=== PATIENT | female | born 1945 | race Caucasian/White ===

== ENCOUNTER → 2019-08-03 16:23 | Outpatient (BNVA) | payer MEDICARE, OTHER, SELFPAY | PROVIDERS: Visit Provider Nurse Practitioner | DX: R50.9 Fever, unspecified (principal) | CPT/HCPCS: 87804 ==

== ENCOUNTER 2020-05-17 10:09 | Outpatient (CLI) | payer MEDICARE, BC, SELFPAY ==
--- NOTE | 2020-05-17 10:15 | MM_ITS ---
WS: [id number] SCREENING DIGITAL MAMMOGRAM WITH CAD HISTORY: SCREENING COMPARISON: 02/18/2018 and 07/24/2011 and 09/09/2014 Bilateral CC and MLO views submitted. Computer aided detection analyzed. Breast composition: There are scattered areas of fibroglandular density. Slightly spiculated asymmetr ic density measuring 7 mm with calcification in the central LEFT breast. Benign calcifications in eac h breast. MM/[place] [id number] IMPRESSION: BI-RADS: 0-Incomplete: Need additional imaging evaluation FOLLOW UP: Need Additional Imaging LEFT breast: Spot compression views (CC and MLO). True ML. Ultrasound to follow if abnormality persists.
== END 2020-05-17 10:10 | disposition home or self-care (01) ==
LOC: RADSHAW 10:13
PROVIDERS: PCP Family Medicine; Visit Provider Family Medicine
DX: Z12.31 Encounter for screening mammogram for malignant neoplasm of breast (principal)
CPT/HCPCS: 77067

== ENCOUNTER 2020-06-02 11:01 | Outpatient (CLI) | payer MEDICARE, BC, SELFPAY ==
--- NOTE | 2020-06-02 11:13 | XR_ITS ---
WS: [id number] 3 views of the right first finger, 06/02/2020 Clinical Data: THUMB PAIN, RIGHT Comparison: None. Findings: No new fractures or dislocations are seen. The soft tissues are normal. The epiphyses and joint space s are not remarkable. There is a small fragment at the base of the right first distal phalanx which may be from an old inju ry. XR/XR finger RT min 2V [id number] Impression: Negative for new fractures or dislocations.
== END 2020-06-02 11:02 | disposition home or self-care (01) ==
PROVIDERS: PCP Family Medicine; Visit Provider Nurse Practitioner Family
DX: M79.644 Pain in right finger(s) (principal)
CPT/HCPCS: 73140

== ENCOUNTER 2020-06-29 08:06 | Outpatient (CLI) | payer MEDICARE, BC, SELFPAY ==
--- NOTE | 2020-06-29 08:14 | US_ITS ---
WS: [id number] ADDITIONAL VIEWS LEFT MAMMOGRAM LEFT BREAST ULTRASOUND HISTORY: LEFT BREAST MASS COMPARISON: 05/17/2020, 02/18/2018 LEFT MAMMOGRAM: Spot compression views and true ML. Soft tissue mass with coarse calcifications measures 8 mm in the central LEFT breast. There does appe ar to be a soft tissue component associated with these calcifications. Although the soft tissue compo nent is best seen on the CC film. LEFT BREAST ULTRASOUND 2-D and color Doppler imaging submitted. Hypoechoic nodule at 2:00, 5 cm from the nipple. Calcifications are not definitely identified. No inc reased vascularity. Benign in appearance. May or may not correspond to the mammographic abnormality. US/US breast LT limited* [id number] IMPRESSION: BI-RADS: 4-Suspicious Finding-Biopsy Should Be Considered FOLLOW UP: Biopsy Recommended Stereotactic biopsy recommended of LEFT breast mass measuring 8 mm. This is bes t seen on the CC projection and contains calcifications.
== END 2020-06-29 08:07 | disposition home or self-care (01) ==
LOC: RADSHAW 08:11
PROVIDERS: PCP Family Medicine; Visit Provider Family Medicine
DX: N63.21 Unspecified lump in the left breast, upper outer quadrant (principal)
CPT/HCPCS: 76642; 77065

== ENCOUNTER 2020-07-11 11:43 | Outpatient (CLI) | payer MEDICARE, BC, SELFPAY ==
--- NOTE | 2020-07-11 11:51 | MM_ITS ---
WS: [id number] STEREOTACTIC LEFT BREAST BIOPSY WITH VACUUM ASSISTANCE. History: Heterogeneous left breast calcifications. Biopsy recommended for suspicious calcifications a nd adjacent nodule. Procedure, risks, and complications were discussed the patient who agreed to proceed. Prior imaging w as reviewed. Cluster of calcifications within the left breast are localized. Stereotactic imaging was performed. P atient was prepped and draped in usual sterile fashion. After 1% lidocaine, calcifications were targe hayden stereotactically in the left breast. Small incision was made. Needle advanced into the cluster of calcifications left breast with imaging demonstrating appropriate position relative to the calcifica tions. Multiple vacuum-assisted core biopsies were obtained. Postprocedure imaging demonstrates calci fications within the biopsy specimen. The biopsy cavity was lavaged. Titanium clip was placed at the biopsy site. Postprocedure imaging dem onstrates clip in good position. No immediate complications. Pathology demonstrates: A. Breast, left, calcifications at 1300, biopsy: -Benign breast tissue with microcalcifications. -No malignancy identified. MM/MM biopsy LT vac assist [id number] IMPRESSION: 1. Uncomplicated vacuum-assisted stereotactic biopsy of calcifications in the left breast. 2. Pathology demonstrates benign breast tissue with microcalcifications. No ma lignancy. BI-RADS 2 benign Recommend return to annual screening mammography.
--- NOTE | 2020-07-11 11:51 | MM_ITS ---
WS: [id number] STEREOTACTIC LEFT BREAST BIOPSY WITH VACUUM ASSISTANCE. History: Heterogeneous left breast calcifications. Biopsy recommended for suspicious calcifications a nd adjacent nodule. Procedure, risks, and complications were discussed the patient who agreed to proceed. Prior imaging w as reviewed. Cluster of calcifications within the left breast are localized. Stereotactic imaging was performed. P atient was prepped and draped in usual sterile fashion. After 1% lidocaine, calcifications were targe hayden stereotactically in the left breast. Small incision was made. Needle advanced into the cluster of calcifications left breast with imaging demonstrating appropriate position relative to the calcifica tions. Multiple vacuum-assisted core biopsies were obtained. Postprocedure imaging demonstrates calci fications within the biopsy specimen. The biopsy cavity was lavaged. Titanium clip was placed at the biopsy site. Postprocedure imaging dem onstrates clip in good position. No immediate complications. Pathology demonstrates: A. Breast, left, calcifications at 1300, biopsy: -Benign breast tissue with microcalcifications. -No malignancy identified. MM/[place] [id number] IMPRESSION: 1. Uncomplicated vacuum-assisted stereotactic biopsy of calcifications in the left breast. 2. Pathology demonstrates benign breast tissue with microcalcifications. No ma lignancy. BI-RADS 2 benign Recommend return to annual screening mammography.
--- NOTE | 2020-07-11 11:51 | MM_ITS ---
WS: [id number] STEREOTACTIC LEFT BREAST BIOPSY WITH VACUUM ASSISTANCE. History: Heterogeneous left breast calcifications. Biopsy recommended for suspicious calcifications a nd adjacent nodule. Procedure, risks, and complications were discussed the patient who agreed to proceed. Prior imaging w as reviewed. Cluster of calcifications within the left breast are localized. Stereotactic imaging was performed. P atient was prepped and draped in usual sterile fashion. After 1% lidocaine, calcifications were targe hayden stereotactically in the left breast. Small incision was made. Needle advanced into the cluster of calcifications left breast with imaging demonstrating appropriate position relative to the calcifica tions. Multiple vacuum-assisted core biopsies were obtained. Postprocedure imaging demonstrates calci fications within the biopsy specimen. The biopsy cavity was lavaged. Titanium clip was placed at the biopsy site. Postprocedure imaging dem onstrates clip in good position. No immediate complications. Pathology demonstrates: A. Breast, left, calcifications at 1300, biopsy: -Benign breast tissue with microcalcifications. -No malignancy identified. MM/MM surgical specimen LT IMPRESSION: 1. Uncomplicated vacuum-assisted stereotactic biopsy of calcifications in the left breast. 2. Pathology demonstrates benign breast tissue with microcalcifications. No ma lignancy. BI-RADS 2 benign Recommend return to annual screening mammography.
[2020-07-11 12:34] LABS: INR 1.02 (0.8-1.2)
== END 2020-07-11 11:44 | disposition home or self-care (01) ==
LOC: RADSHAW 11:49
PROVIDERS: PCP Family Medicine; Visit Provider Family Medicine
DX: R92.1 Mammographic calcification found on diagnostic imaging of breast (principal)
CPT/HCPCS: 19081; 77065; 85610; 88305

== ENCOUNTER 2021-01-25 10:31 | Emergency (ER) | payer MEDICARE, BC, SELFPAY ==
[2021-01-25 11:09] VITALS: BP 200/98; PULSE 66; RESP 15; O2SAT 96; BMI 49.1
--- NOTE | 2021-01-25 11:20 | XR_ITS ---
WS: [id number] Right foot, 3 views, 01/25/2021 Clinical Data: trauma Comparison: None. Findings: No fractures or dislocations are seen. No bone destruction or erosion is noted. There is a bunion at the head of the right first metatarsal. There is irregularity of the base of the right fifth metatars al. There is a plantar spur. XR/XR foot RT min 3V* [id number] Impression: 1. Negative for fracture. 2. Bunion at the head of the right first metatarsal.
--- NOTE | 2021-01-25 11:22 | W.ED.EXTPRO ---
HPI - Extremity Problem General: Chief complaint: Extremity Injury, Lower Stated complaint: R foot pain Time Seen by Provider: 01/25/21 11:10 History of Present Illness: HPI Narrative: Patient complains about right foot pain since zero 400 this morning when she struck her right foot against the leg of a chair. Says she rolled her ankle slightly but her ankle is not hurting. Complaint: extremity pain Onset (ago): hour(s) Pain Consistency: constant Location: right and lower extremity Severity scale (1-10): 4 Quality: aching Relieving factors: immobilization Exacerbating factors: weight bearing Associated symptoms: Reports no associated symptoms; Deny chest pain, fever(s) or rash Review of Systems Const: Denies: fever(s), chills or body aches Eyes: Denies: change in vision or blurry vision ENMT: Denies: throat pain or nasal congestion Card: Reports: other (History of hypertension); Denies: chest pain or dyspnea on exertion Resp: Denies: dyspnea, productive cough or non-productive cough GI: Denies: abdominal pain, nausea or vomiting Musc: Reports: extremity pain (Right foot) Skin/Breast: Denies: rash Neuro: Denies: headache(s) Psych: Denies: anxiety or depression Frank/Lymph: Denies: easy bruising PFSH ED PFSH: Social History (System 01/09/21 @ 15:00 by Tabatha Rivera) Smoking and tobacco status: never smoked Physical Exam Const: COMMON NORMALS: no acute distress GENERAL APPEARANCE: cooperative Extremity: RIGHT LOWER EXTREMITY: Yes foot & digits (Tenderness to midfoot below toes #3 ,4 and five. No swelling) Psych: COMMON NORMALS: mental status grossly normal Course Vital Signs: Vital signs: Vital Signs Pulse Rate 66 01/25/21 11:09 Respiratory Rate 15 01/25/21 11:09 Blood Pressure 200/98 01/25/21 11:09 Pulse Oximetry 96 01/25/21 11:09 Discharge Plan Discharge Prescriptions: No Action amoxicillin-pot clavulanate [Augmentin] 875-125 mg tablet 1 tab PO BID 10 Days Qty: 20 RF: 0 omeprazole 20 mg capsule,delayed release(DR/EC) 20 mg PO BID RF: 0 ferrous gluconate 324 mg (38 mg iron) tablet 324 mg PO BID RF: 0 metoprolol succinate 50 mg tablet extended release 24 hr 50 mg PO TID RF: 0 lisinopril-hydrochlorothiazide 20-12.5 mg tablet 1 tab PO DAILY RF: 0 desloratadine 5 mg tablet 5 mg PO DAILY RF: 0 Coding Level of Care Code ED Mentally Impaired Teacher for Luiz Hernandez
[2021-01-25 11:31] VITALS: BP 170/99; O2SAT 95
[2021-01-25 12:23] VITALS: BP 172/90; RESP 15
== END 2021-01-25 12:23 | disposition home or self-care (01) ==
PROVIDERS: Emergency Provider Nurse Practitioner Family; PCP Family Medicine
DX: M79.671 Pain in right foot (principal)
CPT/HCPCS: 73630; 99282

== ENCOUNTER 2021-09-03 19:29 | Inpatient (IN) | payer MEDICARE, BC, SELFPAY ==
[2021-09-03 19:39] VITALS: BP 187/89; PULSE 77; RESP 18; TEMP 36.6; O2SAT 96; BMI 48.4
--- NOTE | 2021-09-03 20:11 | ED_ITS ---
HPI - GI Bleed General: Chief complaint: ER Hold Stated complaint: pt states Lowe GI bleed Time Seen by Provider: 09/03/21 19:42 Source: patient Mode of arrival: ambulatory Limitations: no limitations History of Present Illness: 76 yo female who has had a history of lower GI bleeds in the past. States she has not had one in roughly 3 years but states she has had diffuse heavy bright red blood in her stools throughout the day. States she been feeling lightheaded as well. States that she has had to have transfusions in the past for GI bleeding she denies any worsening improving factors she is not hypotensive here. Associated symptoms: Denies chills, easy bruising, fever(s), headache(s) or rash Review of Systems Const: Denies: fever(s), chills, body aches or change in appetite Eyes: Denies: blurry vision or eye discomfort ENMT: Denies: throat pain or dental pain Card: Denies: chest pain Resp: Denies: dyspnea GI: Reports: hematochezia : Denies: dysuria Musc: Denies: neck pain or back pain Skin/Breast: Denies: rash Neuro: Denies: headache(s) Psych: Denies: depression Frank/Lymph: Denies: easy bruising All/Imm: Denies: urticaria PFSH ED PFSH: Medical History (Updated 09/03/21 @ 23:20 by Ashley Sandra MD) Lower GI bleed Social History Smoking and tobacco status: never smoked Physical Exam Const: COMMON NORMALS: no acute distress, patient oriented x3 and healthy appearing HENMT: COMMON NORMALS: normocephalic and atraumatic HEAD & SCALP: normocephalic and atraumatic Eye: COMMON NORMALS: Equal, round and reactive pupils present and EOMs intact bilaterally PUPIL: Yes Equal, round and reactive pupils present Neck/C-Spine: COMMON NORMALS: full ROM and supple Chest: COMMONS NORMALS: normal inspection of the chest and normal palpation of entire chest wall Resp: COMMON NORMALS: normal respiratory effort, No retractions, No use of accessory muscles and clear to auscultation bilaterally AUSCULTATION: clear to auscultation bilaterally Cardio: COMMON NORMALS: regular rate, regular rhythm and No murmurs present (Cardio) RATE: regular rate RHYTHM: regular rhythm GI: COMMON NORMALS: Normal to inspection, nondistended, normoactive bowel sounds present, Soft to palpation, non-tender and no masses PALPATION: Yes Soft to palpation Extremity: COMMON NORMALS: normal to inspection and full ROM Neuro: COMMON NORMALS: patient oriented x3, moves all extremities and no focal motor deficits Psych: COMMON NORMALS: mental status grossly normal, Normal thought process present and cooperative THOUGHT PROCESS: Normal thought process present Skin: COMMON NORMALS: no rashes or lesions noted and no wounds GENERAL SKIN EXAM: no rashes or lesions noted Course Vital Signs: Vital signs: Vital Signs Temperature 97.9 F 09/03/21 19:39 Pulse Rate 94 09/03/21 23:28 Respiratory Rate 16 09/03/21 23:28 Blood Pressure 122/77 09/03/21 23:28 Pulse Oximetry 96 09/03/21 23:28 MDM - GI Bleed Medical Decision Making Patient presents here with a lower GI bleed likely from diverticulosis. Her blood pressure down here in the ER has been stable she has had a bloody bowel movement here did repeat her hemoglobin did go down slightly but is a 12 does not require transfusion. Spoke to Dr. Rubio who is consulted talk to the hospitalist who is admitting. Lab Data : 09/03/21 23:08 09/03/21 20:04 Radiology Impressions Abdomen/Pelvis CT 09/03/21 20:43 IMPRESSION: 1. Active GI hemorrhage in the distal ascending and hepatic flexure portions of the colon. This could be due to diverticulosis however a neoplastic lesion is not excluded. Follow-up with colonoscopy is recommended. 2. Severe diverticulosis of the colon. COMMENTS: Consistent with the [employer]'s Incidental Findings Committee white paper (J Am Nickie Radiol 2018): Any incidental renal lesion less than 1 cm or classified as too small to characterize, or any incidental cystic renal lesion characterized as simple-appearing, is likely benign. No follow-up imaging is recommended for these lesions per consensus recommendations based on imaging criteria. ADDENDUM: 09/03/21 [id number] THIS REPORT CONTAINS FINDINGS THAT MAY BE CRITICAL TO PATIENT CARE. Dr Sandra reports he has seen report, and has no questions at 10:58 PM CDT on 09/03/2021. Laboratory Results WBC 7.9 10^3/uL (4.0-10.0) 09/03/21 20:04 RBC 4.65 10^6/uL (4.1-5.3) 09/03/21 20:04 Hgb 12.5 g/dL (11.5-15.3) 09/03/21 23:08 Hct 38.0 % (37.0-47.0) 09/03/21 23:08 MCV 91.2 fl (81-99) 09/03/21 20:04 MCH 29.7 pg (28.0-34.0) 09/03/21 20:04 MCHC 32.5 g/dL (30.0-36.0) 09/03/21 20:04 RDW 13.2 % (12.1-15.1) 09/03/21 20:04 Plt Count 195 10^3/cmm (130-400) 09/03/21 20:04 MPV 12.1 fL (7.4-10.4) H 09/03/21 20:04 Neut % (Auto) 56.1 % 09/03/21 20:04 Lymph % (Auto) 32.4 % 09/03/21 20:04 [place] % (Auto) 8.8 % 09/03/21 20:04 Eos % (Auto) 1.8 % 09/03/21 20:04 Baso % (Auto) 0.5 % 09/03/21 20:04 Neut # (Auto) 4.45 10^3/uL (1.8-7.7) 09/03/21 20:04 Lymph # (Auto) 2.6 10^3/uL (0.8-4.8) 09/03/21 20:04 [place] # (Auto) 0.7 10^3/uL (0.2-0.9) 09/03/21 20:04 Eos # (Auto) 0.1 10^3/uL (0.0-0.8) 09/03/21 20:04 Baso # (Auto) 0.0 10^3/uL (0.0-0.1) 09/03/21 20:04 Nucleated RBC % (auto) 0 % 09/03/21 20:04 Nucleated RBCs # 0.0 /100WBC 09/03/21 20:04 PT 12.70 SECONDS (12.1-14.9) 09/03/21 20:04 INR 0.93 (0.8-1.2) 09/03/21 20:04 Sodium 136 mmol/L (136-145) 09/03/21 20:04 Potassium 4.1 mmol/L (3.5-5.1) 09/03/21 20:04 Chloride 101 mmol/L (98-107) 09/03/21 20:04 Carbon Dioxide 25 mmol/L (22-29) 09/03/21 20:04 Anion Gap 14.1 (5-19) 09/03/21 20:04 BUN 16 mg/dL (8-23) 09/03/21 20:04 Creatinine 0.7 mg/dL (0.5-0.9) 09/03/21 20:04 GFR Calculation Not Reportable 09/03/21 20:04 Glucose 246 mg/dL (65-115) H 09/03/21 20:04 Calculated Osmolality 291 mOsm/kg (285-295) 09/03/21 20:04 Calcium 9.3 mg/dL (8.5-10.5) 09/03/21 20:04 Total Bilirubin 0.2 mg/dL (0.15-1.2) 09/03/21 20:04 AST 19 U/L (0-32) 09/03/21 20:04 ALT 19 U/L (0-33) 09/03/21 20:04 Alkaline Phosphatase 69 IU/L (35-105) 09/03/21 20:04 Total Protein 6.8 g/dL (6.6-8.7) 09/03/21 20:04 Albumin 3.5 g/dL (3.5-5.2) 09/03/21 20:04 Globulin 3.3 g/dL (1.3-4.6) 09/03/21 20:04 Blood Type AB Positive 09/03/21: Rho(D) Type Positive 09/03/21: Antibody Screen Negative 09/03/21 20:29 Critical Care Time Critical Care Time: Critical Care Time: Yes Total Critical Care Time: 39 Attestation: The high probability of a clinically significant, sudden or life threatening deterioration of the patient's GI system(s) required my full and direct attention, intervention and personal management. The critical care time is as shown. This time is in addition to time spent performing any reported procedures but includes the following: [x] Data and vital sign review and interpretation [x] Patient assessment, examination and intervention [x] Documentation [x] Medication orders and management Discharge Plan Discharge Patient Disposition: Admitted As Inpatient Clinical Impression: Lower GI bleed Condition: Stable Coding Level of Care Code ED Restaurant General Manager for Richardg Fwd Exam Comprehensive
[2021-09-03 20:15] LABS: Basophils % 0.5 %; Eosinophils # 0.1 10^3/uL (0.0-0.8); Eosinophils % 1.8 %; Hematocrit 42.4 % (37.0-47.0); Hemoglobin 13.8 g/dL (11.5-15.3); Lymphocytes # 2.6 10^3/uL (0.8-4.8); Lymphocytes % 32.4 %; Mean Corpuscular HGB Conc 32.5 g/dL (30.0-36.0); Mean Corpuscular Hemoglobin 29.7 pg (28.0-34.0); Mean Corpuscular Volume 91.2 fl (81-99); Mean Platelet Volume 12.1 fL (7.4-10.4); Monocytes # 0.7 10^3/uL (0.2-0.9); Monocytes % 8.8 %; Neutrophils # 4.45 10^3/uL (1.8-7.7); Neutrophils % 56.1 %; Nucleated Red Blood Cells % 0 %; Platelet Count 195 10^3/cmm (130-400); Red Blood Count 4.65 10^6/uL (4.1-5.3); Red Cell Distribution Width 13.2 % (12.1-15.1); White Blood Count 7.9 10^3/uL (4.0-10.0)
[2021-09-03 20:24] LABS: INR 0.93 (0.8-1.2)
[2021-09-03 20:36] LABS: Alanine Aminotransferase 19 U/L (0-33); Albumin Level 3.5 g/dL (3.5-5.2); Alkaline Phosphatase 69 IU/L (35-105); Blood Urea Nitrogen 16 mg/dL (8-23); Calcium 9.3 mg/dL (8.5-10.5); Carbon Dioxide 25 mmol/L (22-29); Chloride 101 mmol/L (98-107); Globulin 3.3 g/dL (1.3-4.6); Glucose 246 mg/dL (65-115); Osmolality Calculated 291 mOsm/kg (285-295); Sodium 136 mmol/L (136-145); Total Bilirubin 0.2 mg/dL (0.15-1.2); Total Protein 6.8 g/dL (6.6-8.7)
[2021-09-03 20:37] LABS: Anion Gap 14.1 (5-19); Aspartate Amino Transferase 19 U/L (0-32); Potassium 4.1 mmol/L (3.5-5.1)
--- NOTE | 2021-09-03 20:43 | CTR_ITS ---
PROCEDURE INFORMATION: Exam: CT Abdomen And Pelvis With Contrast Exam date and time: 09/03/2021 9:29 PM Age: 76 years old Clinical indication: Other: Rectal bleeding; Prior surgery; Surgery type: Gb. Hysterectomy. ; Patient HX: Patient states been having bloody stools and active bleeding starting this afternoon. TECHNIQUE: Imaging protocol: Computed tomography of the abdomen and pelvis with contrast. Radiation optimization: All CT scans at this facility use at least one of these dose optimization techniques: automated exposure control; mA and/or kV adjustment per patient size (includes targeted exams where dose is matched to clinical indication); or iterative reconstruction. Contrast material: OMNI 300; Contrast volume: 95 ml; Contrast route: INTRAVENOUS (IV); COMPARISON: [place] [id number] 06/29/2020 8:31 AM RADIATION DOSE METRICS: Total DLP (mGy-cm): 1751.33 FINDINGS: Liver: Diffuse fatty infiltration of the liver. Mild hepatomegaly. Gallbladder and bile ducts: Cholecystectomy. The bile ducts are normal. Pancreas: Normal. No ductal dilation. Spleen: Normal. No splenomegaly. Adrenal glands: Normal. No mass. Kidneys and ureters: Atrophic mildly dysplastic right kidney. Hypodensity in the left kidney is too small to characterize but is most likely a cyst. No follow-up imaging is recommended. No calculus hydronephrosis. Stomach and bowel: There is active extravasation of intravascular contrast in the distal ascending and hepatic flexure portions of the colon. There are diverticula in this region and possible wall thickening. Diverticulosis of the entire colon, severe distally. No evidence for diverticulitis. The stomach and small bowel are unremarkable. No obstruction. Appendix: No evidence of appendicitis. Intraperitoneal space: Unremarkable. No free air. No significant fluid collection. Vasculature: Unremarkable. No abdominal aortic aneurysm. Lymph nodes: Unremarkable. No enlarged lymph nodes. Urinary bladder: Unremarkable as visualized. Reproductive: The uterus is absent. Normal ovaries. Bones/joints: Unremarkable. No acute fracture. Soft tissues: Mild flank body wall edema. CT/CT abdomen pelvis w con* [id number] IMPRESSION: 1. Active GI hemorrhage in the distal ascending and hepatic flexure portions of the colon. This could be due to diverticulosis however a neoplastic lesion is not excluded. Follow-up with colonoscopy is recommended. 2. Severe diverticulosis of the colon. COMMENTS: Consistent with the [employer]'s Incidental Findings Committee white paper (J Am Nickie Radiol 2018): Any incidental renal lesion less than 1 cm or classified as too small to characterize, or any incidental cystic renal lesion characterized as simple-appearing, is likely benign. No follow-up imaging is recommended for these lesions per consensus recommendations based on imaging criteria.
[2021-09-03] MEDS: iohexol 300 mg/mL 100 mL Btl IV (21:29)
[2021-09-03 22:11] VITALS: BP 189/89; PULSE 98; RESP 18; O2SAT 95
[2021-09-03 23:13] LABS: Hemoglobin 12.5 g/dL (11.5-15.3)
[2021-09-03 23:28] VITALS: BP 122/77; PULSE 94; RESP 16; O2SAT 96
--- NOTE | 2021-09-03 23:49 | P.HP_ITS ---
Providers/Chief Complaint Primary Care Provider: Kuldip Winslow MD Chief Complaint: pt states Lowe GI bleed History of Present Illness Mercedes Pizarro is a 76 year old female with a past medical history of cervical cancer, diet-controlled type 2 diabetes mellitus, recurrent lower GI bleed, diverticular bleed, requiring multiple EGDs, total 5 units PRBC transfusion required no history of coil embolization required, no history of ICU admission, no history of hemorrhagic shock, hypertension, asthma, who presents to [facility] for complaints of bloody stools with clots. Patient tells me that she has a history of diverticular bleeds, she has had 2 hospitalizations at [facility], both requiring blood transfusions, both requiring colonoscopy. She also had a hospitalization for GI bleed at [facility], requiring blood transfusi on colonoscopy. This all is in the span of the last 3 years. She has been told that she has had diverticular bleeds, no history of upper GI bleed. She tells me that today at about 1 PM, she noted a sudden onset of bright red blood in her stool with clots. She thought the symptoms would dissipate however the progressively got worse, large volume is bright red blood with clots in her stool. Here in the emergency room, CT scan shows active GI hemorrhage in the distal ascending and hepatic flexures of the colon. Blood pressure 1 87/99, alert oriented x3, saturating in the high 90s on room air, INR 0.93, hemoglobin 12.5. During my examination, no active bloody or black stools, no hemodynamic compromise alert oriented x3, she did tell me that she had a couple of bites of food before she was made n.p.o. in addition I have been told that the ER has contacted Dr. dale who will see for colonoscopy Review of Systems Const: Denies: fever(s) Eyes: Denies: change in vision ENMT: Denies: nasal congestion Resp: Denies: dyspnea GI: Reports: abdominal pain; Denies: nausea or vomiting : Denies: flank pain Skin/Breast: Denies: rash Neuro: Denies: headache(s) Medications/Allergies Home Medications Medication Instructions Recorded Confirmed Last Taken Type desloratadine 5 mg tablet 5 mg PO DAILY 08/03/19 10/15/19 Unknown History ferrous gluconate 324 mg (38 mg 324 mg PO BID tab 08/03/19 10/15/19 Unknown History iron) tablet lisinopril 20 1 tab PO DAILY 08/03/19 10/15/19 Unknown History mg-hydrochlorothiazide 12.5 mg tablet metoprolol succinate 50 mg 50 mg PO TID tab 08/03/19 10/15/19 Unknown History tablet,extended release 24 hr omeprazole 20 mg capsule,delayed 20 mg PO BID 08/03/19 10/15/19 Unknown History release amoxicillin 875 mg-potassium 1 tab PO BID 10 Days #20 tab 10/15/19 10/15/19 Unknown Rx clavulanate 125 mg tablet (Augmentin) Allergies Allergy/AdvReac Type Severity Reaction Status Date / Time acetaminophen Allergy Unconscious Verified 01/09/21 15:00 [From Darvocet-N] codeine Allergy ADR-Drowsy Verified 01/09/21 15:00 erythromycin base Allergy Unconscious Verified 01/09/21 15:00 oxycodone [From Percocet] Allergy ADR-Vomitin Verified 01/09/21 15:00 g propoxyphene Allergy Unconscious Verified 01/09/21 15:00 [From Darvocet-N] PFSH Acute PFSH: Medical History (Updated 09/03/21 @ 23:58 by Renzo Vasquez MD) Asthma History of GI diverticular bleed Lower GI bleed Type 2 diabetes mellitus Surgical History History of colonoscopy Family History Mother Cancer Father Cancer Social History Smoking and tobacco status: never smoked Vitals/I&O/Wt Last Vital Signs Temp 97.9 F 09/03/21 19:39 Pulse 94 09/03/21 23:28 Resp 16 09/03/21 23:28 BP 122/77 09/03/21 23:28 Pulse Ox 96 09/03/21 23:28 Weight last 48 hrs Weight 127.913 kg Physical Exam Const: COMMON NORMALS: no acute distress and patient oriented x3 HENMT: COMMON NORMALS: normocephalic HEAD & SCALP: normocephalic Neck/C-Spine: COMMON NORMALS: no JVD Resp: COMMON NORMALS: normal respiratory effort, No retractions, No use of accessory muscles and clear to auscultation bilaterally AUSCULTATION: clear to auscultation bilaterally Cardio: COMMON NORMALS: no JVD, regular rate, regular rhythm, S1 normal heart sound present and S2 normal heart sound present RATE: regular rate RHYTHM: regular rhythm HEART SOUNDS: S1 normal heart sound present and S2 normal heart sound present GI: COMMON NORMALS: Normal to inspection, nondistended, normoactive bowel sounds present, Soft to palpation, non-tender, No hepatosplenomegaly present, no masses and no bruits PALPATION: Yes Soft to palpation and Yes No h epatosplenomegaly present Extremity: COMMON NORMALS: capillary refill normal, no clubbing, cyanosis or edema, no calf tenderness and no pedal edema Neuro: COMMON NORMALS: patient oriented x3 Psych: COMMON NORMALS: mental status grossly normal Data : 09/03/21 23:08 09/03/21 20:04 A&P Assessment and plan (1) Lower GI bleed: Status: Acute Plan Lower GI bleed 1. Active GI hemorrhage in the distal ascending and hepatic flexure portions of the colon.? This could be due to diverticulosis however a neoplastic lesion is not excluded.? Follow-up with colonoscopy is recommended. 2. Severe diverticulosis of the colon. No hemodynamic compromise Currently no active bloody or black stools, but did have a couple episodes of blood with clots in the emergency room Hemoglobin is 12.5 Plan -Monitor hemoglobin every 4 hours -Monitor for bloody stools -Monitor hemodynamics closely -Keep n.p.o. -IV fluids -Protonix, Carafate -General surgery on consult -Currently no need for coil embolization, however if hemoglobin drops or becomes hemodynamically compromised, can consider transfer for higher level of care -Full code -Anticoagulants for DVT prophylaxis contraindicated given active bleeding, SCDs Type 2 diabetes mellitus, diet controlled check A1c, monitor hemoglobin Hypertension hold blood pressure medication Attestations Medical Necessity Statement*: Patient requires hospitalization outpatient with observation, for lower GI bleed Coding Level of Care Code Acute Histology Technician for [facility] Diagnoses Lower GI bleed K92.2
[2021-09-04] VITALS (12 sets, daily range): BP systolic 120–159; BP diastolic 67–88; PULSE 66–94; RESP 16–96; TEMP 36.4–36.6; O2SAT 92–98
[2021-09-04 00:48] LABS: Estmated Average Glucose 197; Hemoglobin A1C 8.5 % (4.0-6.0)
[2021-09-04] MEDS: pantoprazole 40 mg SDV IVP ×2 (01:08→12:07)
[2021-09-04] MEDS: sucralfate 1 gm Tablet PO (01:08)
[2021-09-04] MEDS: dextrose 5%-sod chloride 0.9% 1,000 ML 100 ML IV ×3 (01:08→22:53)
[2021-09-04 02:40] LABS: Hematocrit 34.3 % (37.0-47.0); Hemoglobin 11.4 g/dL (11.5-15.3)
--- NOTE | 2021-09-04 03:50 | PC.NURSE ---
Pt. resting quietly . Pt. has no complaints or needs at this time. Pt. states that her episodes of blood in her stool have been coming less often.
[2021-09-04 06:14] LABS: Hematocrit 35.1 % (37.0-47.0); Hemoglobin 11.5 g/dL (11.5-15.3)
--- NOTE | 2021-09-04 07:45 | P.CONIM_ITS ---
Providers/Reason For Consult Consulting Physician/Specialty*: General Surgery Surendra Rubio MD Reason for Consult*: Hematochezia. Attending Physician: Dada Huntley MD Primary Care Provider: Kuldip Winslow MD History of Present Illness History of Present Illness Mercedes Pizarro is a 76 year old female who says that she started passing a little darker colored blood with some clots yesterday afternoon around 1:30 PM. This was unassociated with any abdominal pain. She said she had more than 10 bowel movements yesterday, all of which contain blood. She came into the hospital and a CAT scan showed a possible source of hemorrhage in the ascending colon/hepatic flexure. The patient says she is only had 1 bowel movement today but it did contain a little bit of dark blood and clots. She is thirsty and would like to drink some fluids. The patient has had a history of multiple episodes of GI bleeding. She had a colonoscopy in late [address] which showed extensive diverticular disease. She says in the next couple of years she ended up having 3 more colonoscopies in [facility] for GI bleeding. She has always been told that this is diverticular bleeding but is not sure where the exact source has been. She is in the habit of taking many NSAIDs. Review of Systems General: Reports: 10 or more systems reviewed and unremarkable except in HPI and below Const: Denies: fever(s) GI: Reports: hematochezia; Denies: abdominal pain, nausea or vomiting Medications/Allergies Home Medications Medication Instructions Recorded Confirmed Last Taken Type desloratadine 5 mg tablet 5 mg PO DAILY 08/03/19 09/04/21 Unknown History lisinopril 20 1 tab PO QAM 08/03/19 09/04/21 Unknown History mg-hydrochlorothiazide 12.5 mg tablet omeprazole 20 mg capsule,delayed 20 mg PO BID 08/03/19 09/04/21 Unknown History release Elderberry Gummies 2 tab PO DAILY 09/04/21 09/04/21 Unknown History albuterol sulfate 90 mcg/actuation 2 puff INHALATION QID PRN 09/04/21 09/04/21 Unknown History aerosol inhaler azelastine 137 mcg (0.1 %) nasal 2 spray INTRANASAL BID 09/04/21 09/04/21 Unknown History spray aerosol diphenoxylate-atropine 2.5 1 tab PO BID PRN 09/04/21 09/04/21 Unknown History mg-0.025 mg tablet ferrous sulfate 325 mg (65 mg 325 mg PO BID 09/04/21 09/04/21 Unknown History iron) tablet metoprolol tartrate 50 mg tablet 50 mg PO TID 09/04/21 09/04/21 Unknown History montelukast 10 mg tablet 10 mg PO DAILY 09/04/21 09/04/21 Unknown History multivitamin 1 tab PO DAILY 09/04/21 09/04/21 Unknown History neomycin 3.5 mg/g-polymyxin B See Rx Instructions .ROUTE .COMPLEX 09/04/21 09/04/21 Unknown History 10,000 unit/g-dexameth 0.1 % eye oint Allergies Allergy/AdvReac Type Severity Reaction Status Date / Time acetaminophen Allergy Unconscious Verified 01/09/21 15:00 [From Darvocet-N] codeine Allergy ADR-Drowsy Verified 01/09/21 15:00 erythromycin base Allergy Unconscious Verified 01/09/21 15:00 oxycodone [From Percocet] Allergy ADR-Vomitin Verified 01/09/21 15:00 g propoxyphene Allergy Unconscious Verified 01/09/21 15:00 [From Darvocet-N] Current Medications Generic Name Dose Route Start Last Admin Trade Name Freq PRN Reason Stop Dose Admin Dextrose/Sodium Chloride 1,000 mls @ 100 mls/hr 09/04/21 00:30 09/04/21 01:08 Dextrose 5%-Sod Chloride 0.9% IV 100 mls/hr .Q10H ANDRIA Administration Pantoprazole Sodium 40 mg 09/04/21 00:30 09/04/21 01:08 Pantoprazole 40 Mg Sdv IVP 40 mg Q12H ANDRIA Administration PFSH Acute PFSH: Medical History (Updated 09/04/21 @ 11:21 by Surendra Rubio MD) Asthma Cervical cancer Status post hysterectomy Diverticulosis History of GI diverticular bleed Lower GI bleed Type 2 diabetes mellitus Surgical History (Updated 09/04/21 @ 11:17 by Surendra Rubio MD) History of ankle surgery R x 2 / L x 1 --multiple fractures History of cataract surgery History of cholecystectomy History of colonoscopy Multiple History of dilatation and curettage / biopsies x 7 History of hysterectomy History of tonsillectomy Patellar disorder Right --debridement following a chip fracture Family History Mother Cancer Father Cancer Social History (Updated 09/04/21 @ 11:17 by Surendra Rubio MD) Smoking and tobacco status: never smoked Alcohol intake: never Vitals/I&O/Wt Last Vital Signs Temp 97.9 F 09/03/21 19:39 Pulse 84 09/04/21 06:29 Resp 16 09/04/21 06:29 BP 139/76 09/04/21 06:29 Pulse Ox 96 09/04/21 06:29 Weight last 48 hrs Weight 282 lb Physical Exam Narrative: The patient was encountered in her hospital room. She is in no distress. The pupils are equal. No carotid bruits are heard. The lungs are clear anteriorly. The heart is regular. The abdomen reveals bowel sounds and is soft but is moderately tender severely obese. There is no appreciable tenderness. No masses are palpated. The extremities reveal no significant edema. Neurologically the patient appears to be grossly intact. Data : 09/04/21 06:09 09/03/21 20:04 CT Abd/Pel: Radiologist's impression: CT abdomen/pelvis 09/03/2021IMPRESSION: 1. Active GI hemorrhage in the distal ascending and hepatic flexure portions of the colon.? This could be due to diverticulosis however a neoplastic lesion is not excluded.? Follow-up with colonoscopy is recommended. 2. Severe diverticulosis of the colon. A&P Assessment and plan (1) Lower GI bleed: The patient's CAT scan was reviewed. I agree with the assessment of possible ongoing hemorrhage at that time in the distal ascending colon as evidenced by the blush that is present. The patient has had multiple colonoscopies over the years. I made her aware that colonoscopy might be helpful in locating the source of bleeding but we cannot typically fix diverticular bleeding endoscopically. We discussed angiography, placement of coils by an interventional radiologist, etc. It appears that the patient's bleeding has certainly slowed and possibly even stopped. Her hemoglobin remained stable. She would like to avoid another colonoscopy at all possible. She would like to drink some liquids if that is allowed. I am going to allow her a clear liquid diet and we will continue to watch her clinical progress. Status: Acute (2) Diverticulosis: Seems rather extensive on imaging. Plan as above. Status: Acute Consult Attestations Medical Necessity Statement: See admitting service's notation. Coding Level of Care Code Acute Care Team Coordinator Scheduler for [facility] Diagnoses Lower GI bleed K92.2 Diverticulosis K57.90
--- NOTE | 2021-09-04 08:11 | PM.PN ---
Subjective Subjective: History and physical reviewed in detail. Patient interviewed. She denies any complaints of pain this morning. She reports her last bowel movement, of clots was around 1:30 AM. She is he believes her last colonoscopy was 3 years ago, and the findings were rather extensive diverticulosis. She denies any vomiting, nausea. Medications: Reviewed: Yes Vitals/I&O/Wt Last Vital Signs Temp 97.9 F 09/03/21 19:39 Pulse 85 09/04/21 07:52 Resp 16 09/04/21 07:52 BP 135/81 09/04/21 07:52 Pulse Ox 97 09/04/21 07:52 Weight last 48 hrs Weight 127.913 kg Physical Exam Narrative: General exam is a female, conversant, in no distress Neck is supple no lymphadenopathy thyromegaly Cardiovascular regular rate and rhythm without murmur, no S3 or S4 Lungs clear no wheezing or crackles Abdomen is soft nontender positive bowel sounds Extremities no cyanosis clubbing or edema Data : 09/04/21 06:09 09/03/21 20:04 A&P Assessment and plan (1) Lower GI bleed: Presentation consistent with lower GI bleed, with bright red blood per rectum. Evidence of active bleeding, seen on CT scan at distal ascending/hepatic flexure on admission. She has not had a bowel movement since about 130, and it is unlikely she is actively bleeding currently. Hemoglobin appears to have stabilized. According to patient last colonoscopy approximately 3 years ago, and has had multiple episodes of bleeds in the past. She is not on any anticoagulants or antiplatelets. Surgery has been consulted regarding possibility of endoscopy Status: Acute (2) Type 2 diabetes mellitus: Continue sliding scale insulin Status: Acute (3) Hypertension: Awaiting medicine reconciliation. Will likely need to restart metoprolol today. Status: Acute Plan Multiple other medical problems as outlined in past medical history Lovenox contraindicated, SCDs for DVT prophylaxis Attestations Medical Necessity Statement*: Needs continued hospital stay for evaluation of significant lower GI bleed with history of active bleeding seen on admission by CT scan. Coding Level of Care Code Acute Continuous Pickling Line Pickler for [facility] Hernandez Diagnoses Lower GI bleed K92.2 Type 2 diabetes mellitus E11.9 Hypertension I10
--- NOTE | 2021-09-04 10:07 | PC.CHAP ---
Pastoral Care Encounter/Spiritual Assessment Type of Contact [] Declined guide rail cleaner visit [] Patient/Family/Request visit [] Outpatient visit [] Follow-up visit [] Physician referral [] Code/Alert [x] Routine visit [] Staff referral [] Actively dying [] Patient sleeping [] Family support [] [] Out of room [] Palliative care [] [] Receiving care in room [] Pre-surgical visit [] Trauma [] Long length of stay [] ICU visit [] Other: Relational/Emotional Strength [x] Patient feels connected with others/family/visitors/staff [] Distress [] Loneliness/isolation [] Abandonment Spirituality of Patient [x] Person of Melba [] Attends Druze of their Melba [x] Believes in Prayer [] Reads Bible or Orthodox materials [] There are Spiritual issues to be addressed Director Adult Interventions [x] Prayer [x] Active listening [x] Non-anxious presence [x] Spiritual/emotional support [] Crisis/trauma care [] Spiritual counseling [] Bereavement support [] Provided bereavement packet [] Provided Bible/devotional materials [] Provided toy/stuffed animal, coloring book to patient or family member [] Provided Communion [] Anointing/[place] [] Salvation [x] Completed spiritual assessment [] Other: Impact on Illness or Injury [] Angry [] Fearful [] Anxious [] Often cries [] Exhaustion [] Unable to work [] Unable to attend pentecostal [] Unable to walk/stand [] Unable to read [] Unable to drive [] Unable to eat/drink [] Unable to sleep [] Unable to be with family [] Patient intubated [] Other: Summary Pt came through the ER yesterday, glad to be in a room. 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 She enjoys sewing and described it as her calming time. With in the last couple of months she has had several procedures done on her eyes and she is happy because she is able to sew again. She also enjoys gardening. She has four children and they are spread throughout the country. She was born in [facility]. Time spent with patient 15m
--- NOTE | 2021-09-04 10:23 | PC.NURSE ---
Patient arrived to floor via stretcher, up at amos, AAOx4, no current c/o pain but is chilled. Patient states having a recent episode of bloody stool. Asked patient to not flush toilet so staff can see the stool. No skin concerns, does have stitches to eye lids from recent surgery for excess eye lid removal. Physician, Dr Del Valle asked for someone in facility to remove stitches at earliest convenience as she had an appointment at his office this AM for their removal.
[2021-09-04 10:43] LABS: Glucose Point of Care 245 mg/dL (70-110)
[2021-09-04 14:20] LABS: Hematocrit 34.9 % (37.0-47.0); Hemoglobin 11.1 g/dL (11.5-15.3)
[2021-09-04] MEDS: metoprolol tartrate 50 mg Tablet PO ×2 (15:15→21:01)
[2021-09-04 17:55] LABS: Glucose Point of Care 219 mg/dL (70-110)
[2021-09-04 20:46] LABS: Glucose Point of Care 210 mg/dL (70-110)
[2021-09-05] VITALS (7 sets, daily range): BP systolic 137–165; BP diastolic 51–79; PULSE 66–651; RESP 18–20; TEMP 36.4–36.6; O2SAT 94–96
[2021-09-05] MEDS: pantoprazole 40 mg SDV IVP ×2 (00:34→12:25)
[2021-09-05 04:59] LABS: Basophils % 0.3 %; Eosinophils # 0.2 10^3/uL (0.0-0.8); Eosinophils % 2.2 %; Hematocrit 31.9 % (37.0-47.0); Hemoglobin 10.2 g/dL (11.5-15.3); Lymphocytes # 2.2 10^3/uL (0.8-4.8); Lymphocytes % 33.4 %; Mean Corpuscular Hemoglobin 29.5 pg (28.0-34.0); Mean Corpuscular Volume 92.2 fl (81-99); Mean Platelet Volume 12.3 fL (7.4-10.4); Monocytes # 0.6 10^3/uL (0.2-0.9); Monocytes % 9.5 %; Neutrophils # 3.63 10^3/uL (1.8-7.7); Neutrophils % 54.2 %; Nucleated Red Blood Cells % 0 %; Platelet Count 163 10^3/cmm (130-400); Red Blood Count 3.46 10^6/uL (4.1-5.3); Red Cell Distribution Width 13.4 % (12.1-15.1); White Blood Count 6.7 10^3/uL (4.0-10.0)
[2021-09-05 05:19] LABS: Alanine Aminotransferase 14 U/L (0-33); Albumin Level 2.9 g/dL (3.5-5.2); Alkaline Phosphatase 53 IU/L (35-105); Anion Gap 11.7 (5-19); Aspartate Amino Transferase 15 U/L (0-32); Blood Urea Nitrogen 11 mg/dL (8-23); Calcium 8.9 mg/dL (8.5-10.5); Carbon Dioxide 24 mmol/L (22-29); Chloride 107 mmol/L (98-107); Globulin 2.8 g/dL (1.3-4.6); Glucose 178 mg/dL (65-115); Magnesium 1.6 mg/dL (1.7-2.3); Osmolality Calculated 292 mOsm/kg (285-295); Potassium 3.7 mmol/L (3.5-5.1); Sodium 139 mmol/L (136-145); Total Bilirubin 0.2 mg/dL (0.15-1.2); Total Protein 5.7 g/dL (6.6-8.7)
[2021-09-05 06:08] LABS: Glucose Point of Care 190 mg/dL (70-110)
--- NOTE | 2021-09-05 06:29 | P.PN_ITS ---
Subjective Subjective: The patient feels well. She tells me her last 3 bowel movements did not have any blood in them. Vitals/I&O/Wt Last Vital Signs Temp 97.5 F L 09/05/21 03:36 Pulse 67 09/05/21 06:00 Resp 19 H 09/05/21 03:36 BP 137/70 09/05/21 03:36 Pulse Ox 96 09/05/21 03:36 09/04/21 09/04/21 09/05/21 14:59 22:59 06:59 Intake Total 855 / 2155 1000 / 2155 300 / 2155 Balance 855 / 2155 1000 / 2155 300 / 2155 Weight last 48 hrs Weight 282 lb Physical Exam Narrative: Abdomen remains soft. Data : 09/05/21 04:19 09/05/21 04:19 A&P Assessment and plan (1) Lower GI bleed: The patient's presentation CAT scan was reviewed. I agree with the assessment of possible ongoing hemorrhage at that time in the distal ascending colon as evidenced by the blush that is present. The patient has had multiple colonoscopies over the years. I made her aware that colonoscopy might be helpful in locating the source of bleeding but we cannot typically fix diverticular bleeding endoscopically. We discussed angiography, placement of coils by an interventional radiologist, etc. The patient says her last 3 bowel movements have not had any blood in them. It would appear that her bleeding has probably stopped. Continue present management. Status: Acute (2) Diverticulosis: Seems rather extensive on imaging. Plan as above. Status: Acute Attestations Medical Necessity Statement*: See admitting service's notation. Coding Level of Care Code Acute Brewery Pumper for [facility] Diagnoses Lower GI bleed K92.2 Diverticulosis K57.90
--- NOTE | 2021-09-05 08:37 | PM.PN ---
Subjective Subjective: Mercedes reports that she is doing okay. Last night she thought she may have had to have a bowel movement several times but did not pass any. Last bowel movement did have blood in it but this was yesterday. Wants to go ahead and advance diet this morning. Medications: Reviewed: Yes Vitals/I&O/Wt Last Vital Signs Temp 97.5 F L 09/05/21 03:36 Pulse 67 09/05/21 07:03 Resp 18 09/05/21 07:03 BP 141/68 09/05/21 07:03 Pulse Ox 95 09/05/21 07:03 09/04/21 09/05/21 09/05/21 22:59 06:59 14:59 Intake Total 1000 / 1855 300 / 2155 Balance 1000 / 1855 300 / 2155 Weight last 48 hrs Weight 127.913 kg Physical Exam Narrative: General exam is a female, conversant, in no distress Neck is supple no lymphadenopathy thyromegaly Cardiovascular regular rate and rhythm without murmur, no S3 or S4 Lungs clear no wheezing or crackles Abdomen is soft nontender positive bowel sounds Extremities no cyanosis clubbing or edema Data : 09/05/21 04:19 09/05/21 04:19 A&P Assessment and plan (1) Lower GI bleed: Presentation consistent with lower GI bleed, with bright red blood per rectum. Evidence of active bleeding, seen on CT scan at distal ascending/hepatic flexure on admission. Hemoglobin has drifted down slightly. She did ultimately have some bloody bowel movements yesterday, but no bowel movements throughout the night. We will advance diet and continue to observe closely. Surgery is on board. Plan for repeat hemoglobin tomorrow morning, unless bleeding recurs According to patient last colonoscopy approximately 3 years ago, and has had multiple episodes of bleeds in the past. She is not on any anticoagulants or antiplatelets. Surgery has been consulted regarding possibility of endoscopy Status: Acute (2) Type 2 diabetes mellitus: Continue sliding scale insulin Status: Acute (3) Hypertension: Metoprolol was reinitiated Status: Acute Plan Hypomagnesemia, supplement Multiple other medical problems as outlined in past medical history Lovenox contraindicated, SCDs for DVT prophylaxis Attestations Medical Necessity Statement*: Needs continued hospital stay for close monitoring secondary to GI bleed with anemia and decreasing hemoglobin by over 2 g. Was still having blood in his stools as of yesterday afternoon/evening Coding Level of Care Code Acute Senior Java Programmer Analyst for [facility] Diagnoses Lower GI bleed K92.2 Type 2 diabetes mellitus E11.9 Hypertension I10
[2021-09-05] MEDS: magnesium sulfate premix 2 GM/50 ML PIGGYBACK IV (09:00)
[2021-09-05] MEDS: metoprolol tartrate 50 mg Tablet PO ×3 (09:08→20:34)
--- NOTE | 2021-09-05 10:22 | PC.CHAP ---
Pastoral Care Encounter/Spiritual Assessment Type of Contact [] Declined internal communications writer visit [] Patient/Family/Request visit [] Outpatient visit [] Follow-up visit [] Physician referral [] Code/Alert [x] Routine visit [] Staff referral [] Actively dying [] Patient sleeping [] Family support [] [] Out of room [] Palliative care [] [] Receiving care in room [] Pre-surgical visit [] Trauma [] Long length of stay [] ICU visit [] Other: Relational/Emotional Strength [x] Patient feels connected with others/family/visitors/staff [] Distress [] Loneliness/isolation [] Abandonment Spirituality of Patient [x] Person of Melba [] Attends Uatsdin of their Melba [] Believes in Prayer [] Reads Bible or Taoist materials [] There are Spiritual issues to be addressed Bulk Driver Interventions [x] Prayer [x] Active listening [x] Non-anxious presence [x Spiritual/emotional support [] Crisis/trauma care [] Spiritual counseling [] Bereavement support [] Provided bereavement packet [] Provided Bible/devotional materials [] Provided toy/stuffed animal, coloring book to patient or family member [] Provided Communion [] Anointing/[place] [] Salvation [x] Completed spiritual assessment [] Other: Impact on Illness or Injury [] Angry [] Fearful [] Anxious [] Often cries [] Exhaustion [] Unable to work [] Unable to attend protestant [] Unable to walk/stand [] Unable to read [] Unable to drive [] Unable to eat/drink [] Unable to sleep [] Unable to be with family [] Patient intubated [] Other: Summary Time spent with patient
[2021-09-05 10:51] LABS: Glucose Point of Care 198 mg/dL (70-110)
[2021-09-05] MEDS: dextrose 5%-sod chloride 0.9% 1,000 ML 100 ML IV (15:42)
[2021-09-05 17:08] LABS: Glucose Point of Care 160 mg/dL (70-110)
[2021-09-05 21:03] LABS: Glucose Point of Care 159 mg/dL (70-110)
[2021-09-06] VITALS: BP 133/67; PULSE 65; RESP 18; TEMP 36.6; O2SAT 96
[2021-09-06 03:43] VITALS: BP 146/75; PULSE 65; RESP 17; TEMP 36.6; O2SAT 94
[2021-09-06 05:08] LABS: Basophils % 0.6 %; Eosinophils # 0.1 10^3/uL (0.0-0.8); Eosinophils % 1.8 %; Hematocrit 32.3 % (37.0-47.0); Hemoglobin 10.3 g/dL (11.5-15.3); Lymphocytes # 2.3 10^3/uL (0.8-4.8); Lymphocytes % 32.1 %; Mean Corpuscular HGB Conc 31.9 g/dL (30.0-36.0); Mean Corpuscular Hemoglobin 29.8 pg (28.0-34.0); Mean Corpuscular Volume 93.4 fl (81-99); Monocytes # 0.6 10^3/uL (0.2-0.9); Monocytes % 8.4 %; Neutrophils # 4.11 10^3/uL (1.8-7.7); Neutrophils % 56.7 %; Nucleated Red Blood Cells % 0 %; Platelet Count 136 10^3/cmm (130-400); Red Blood Count 3.46 10^6/uL (4.1-5.3); Red Cell Distribution Width 13.3 % (12.1-15.1); White Blood Count 7.3 10^3/uL (4.0-10.0)
[2021-09-06 05:27] LABS: Alanine Aminotransferase 17 U/L (0-33); Albumin Level 3.2 g/dL (3.5-5.2); Alkaline Phosphatase 56 IU/L (35-105); Anion Gap 13.8 (5-19); Aspartate Amino Transferase 21 U/L (0-32); Blood Urea Nitrogen 9 mg/dL (8-23); Calcium 8.9 mg/dL (8.5-10.5); Carbon Dioxide 22 mmol/L (22-29); Chloride 107 mmol/L (98-107); Globulin 2.5 g/dL (1.3-4.6); Glucose 150 mg/dL (65-115); Magnesium 2.1 mg/dL (1.7-2.3); Osmolality Calculated 290 mOsm/kg (285-295); Potassium 3.8 mmol/L (3.5-5.1); Sodium 139 mmol/L (136-145); Total Bilirubin 0.2 mg/dL (0.15-1.2); Total Protein 5.7 g/dL (6.6-8.7)
[2021-09-06 05:34] VITALS: PULSE 62
[2021-09-06 06:20] LABS: Glucose Point of Care 156 mg/dL (70-110)
[2021-09-06 08:00] VITALS: BP 184/80; PULSE 81; TEMP 36.6; O2SAT 94
[2021-09-06] MEDS: metoprolol tartrate 50 mg Tablet PO (08:24)
[2021-09-06] MEDS: pantoprazole DR 40 mg Tablet PO (08:25)
--- NOTE | 2021-09-06 08:29 | PM.DCS ---
Discharge Providers Date of Admission: 09/04/21 17:28 Date of Discharge: September 06, 2021 Attending Provider at Admission: Renzo Vasquez MD Attending Provider at Discharge: Dada Huntley MD Primary Care Provider: Kuldip Winslow MD Diagnoses at Discharge Discharge Diagnosis (1) Lower GI bleed: Status: Acute (2) Type 2 diabetes mellitus: Status: Acute (3) Hypertension: Status: Acute Reason for Visit Reason for Visit: pt states Lowe GI bleed Hospital Course Hospital Course Mercedes is a 76-year-old white female who presented to the hospital with bright red blood per rectum. She reported a past history of significant diverticular bleeds. Hemoglobin was 13.8. Last colonoscopy according to the patient was approximately 3 years prior. She was made n.p.o., and closely followed with serial hemoglobins. CT scan of her abdomen and pelvis was obtained on admission demonstrating acute bleeding hepatic flexure, distal ascending colon. Surgery was consulted as well. Patient had improvement during her hospital course with resolution of bleeding. Hemoglobin drifted down as expected, and was 10.3 at discharge. She had had no bloody bowel movements in over 36 hours prior to discharge, with resumption of diet. Surgery did not believe repeat colonoscopy was needed, as patient had had one 3 years prior. She will be discharged today, with close follow-up with her primary care provider. Repeat colonoscopy can be done at their timing interval and preference. Hemoglobin A1c was also elevated. She may require addition of medication for diabetes, as diet control does not appear to be sufficient. Her primary care provider can address this at follow-up. Physical Exam Narrative: General exam no distress Neck is supple Cardiovascular regular rate and rhythm without murmur Lungs clear Abdomen soft with positive bowel sounds Extremities no cyanosis clubbing or edema Discharge Data Studies Completed and Pending Completed Studies During Hospitalization Category Date Time Status CT abdomen pelvis w con* [id number] Urgent Cat Scan 09/03/21 20:43 Completed Pending at discharge Category Date Time Status Complete Blood Count w/Auto AM LABS Lab 09/07/21 04:00 Ordered Comprehensive Metabolic Panel AM LABS Lab 09/07/21 04:00 Ordered Magnesium AM LABS Lab 09/07/21 04:00 Ordered Radiology Impressions Abdomen/Pelvis CT 09/03/21 20:43 IMPRESSION: 1. Active GI hemorrhage in the distal ascending and hepatic flexure portions of the colon. This could be due to diverticulosis however a neoplastic lesion is not excluded. Follow-up with colonoscopy is recommended. 2. Severe diverticulosis of the colon. COMMENTS: Consistent with the [employer]'s Incidental Findings Committee white paper (J Am Nickie Radiol 2018): Any incidental renal lesion less than 1 cm or classified as too small to characterize, or any incidental cystic renal lesion characterized as simple-appearing, is likely benign. No follow-up imaging is recommended for these lesions per consensus recommendations based on imaging criteria. ADDENDUM: 09/03/21 [id number] THIS REPORT CONTAINS FINDINGS THAT MAY BE CRITICAL TO PATIENT CARE. Dr Sandra reports he has seen report, and has no questions at 10:58 PM CDT on 09/03/2021. Laboratory Results WBC 7.3 10^3/uL (4.0-10.0) 09/06/21 04:07 RBC 3.46 10^6/uL (4.1-5.3) L 09/06/21 04:07 Hgb 10.3 g/dL (11.5-15.3) L 09/06/21 04:07 Hct 32.3 % (37.0-47.0) L 09/06/21 04:07 MCV 93.4 fl (81-99) 09/06/21 04:07 MCH 29.8 pg (28.0-34.0) 09/06/21 04:07 MCHC 31.9 g/dL (30.0-36.0) 09/06/21 04:07 RDW 13.3 % (12.1-15.1) 09/06/21 04:07 Plt Count 136 10^3/cmm (130-400) 09/06/21 04:07 MPV 13.0 fL (7.4-10.4) H 09/06/21 04:07 Neut % (Auto) 56.7 % 09/06/21 04:07 Lymph % (Auto) 32.1 % 09/06/21 04:07 [place] % (Auto) 8.4 % 09/06/21 04:07 Eos % (Auto) 1.8 % 09/06/21 04:07 Baso % (Auto) 0.6 % 09/06/21 04:07 Neut # (Auto) 4.11 10^3/uL (1.8-7.7) 09/06/21 04:07 Lymph # (Auto) 2.3 10^3/uL (0.8-4.8) 09/06/21 04:07 [place] # (Auto) 0.6 10^3/uL (0.2-0.9) 09/06/21 04:07 Eos # (Auto) 0.1 10^3/uL (0.0-0.8) 09/06/21 04:07 Baso # (Auto) 0.0 10^3/uL (0.0-0.1) 09/06/21 04:07 Nucleated RBC % (auto) 0 % 09/06/21 04:07 Nucleated RBCs # 0.0 /100WBC 09/06/21 04:07 PT 12.70 SECONDS (12.1-14.9) 09/03/21 20:04 INR 0.93 (0.8-1.2) 09/03/21 20:04 Sodium 139 mmol/L (136-145) 09/06/21 04:07 Potassium 3.8 mmol/L (3.5-5.1) 09/06/21 04:07 Chloride 107 mmol/L (98-107) 09/06/21 04:07 Carbon Dioxide 22 mmol/L (22-29) 09/06/21 04:07 Anion Gap 13.8 (5-19) 09/06/21 04:07 BUN 9 mg/dL (8-23) 09/06/21 04:07 Creatinine 0.7 mg/dL (0.5-0.9) 09/06/21 04:07 GFR Calculation Not Reportable 09/06/21 04:07 Glucose 150 mg/dL (65-115) H 09/06/21 04:07 POC Glucose 156 mg/dL (70-110) H 09/06/21 06:08 Estimat Average Glucose 197 09/03/21 20:04 Hemoglobin A1c 8.5 % (4.0-6.0) H 09/03/21 20:04 Calculated Osmolality 290 mOsm/kg (285-295) 09/06/21 04:07 Calcium 8.9 mg/dL (8.5-10.5) 09/06/21 04:07 Magnesium 2.1 mg/dL (1.7-2.3) 09/06/21 04:07 Total Bilirubin 0.2 mg/dL (0.15-1.2) 09/06/21 04:07 AST 21 U/L (0-32) 09/06/21 04:07 ALT 17 U/L (0-33) 09/06/21 04:07 Alkaline Phosphatase 56 IU/L (35-105) 09/06/21 04:07 Total Protein 5.7 g/dL (6.6-8.7) L 09/06/21 04:07 Albumin 3.2 g/dL (3.5-5.2) L 09/06/21 04:07 Globulin 2.5 g/dL (1.3-4.6) 09/06/21 04:07 Blood Type AB Positive 09/03/21 20:29 Rho(D) Type Positive 09/03/21 20:29 Antibody Screen Negative 09/03/21 20:29 Vitals Last Vital Signs Temp 97.8 F 09/06/21 03:43 Pulse 62 09/06/21 05:34 Resp 17 09/06/21 03:43 BP 146/75 09/06/21 03:43 Pulse Ox 94 09/06/21 03:43 Discharge Plan Discharge Patient Disposition: Home Condition: Stable Prescriptions: New pantoprazole 40 mg Tablet,Delayed Release (Dr/Ec) 40 mg PO BID Qty: 60 0RF Continued lisinopril-hydrochlorothiazide 20-12.5 mg tablet 1 tab PO QAM 0RF desloratadine 5 mg tablet 5 mg PO DAILY 0RF multivitamin Tablet 1 tab PO DAILY 0RF diphenoxylate-atropine 2.5-0.025 mg tablet 1 tab PO BID PRN (Reason: Diarrhea) 0RF ferrous sulfate 325 mg (65 mg iron) tablet 325 mg PO BID 0RF metoprolol tartrate 50 mg tablet 50 mg PO TID 0RF montelukast 10 mg tablet 10 mg PO DAILY 0RF azelastine 137 mcg (0.1 %) aerosol,spray 2 spray INTRANASAL BID 0RF albuterol sulfate 90 mcg/actuation HFA aerosol inhaler 2 puff INHALATION QID PRN (Reason: Shortness Of Breath) 0RF neomycin-polymyxin B-dexameth 3.5 mg/g-10,000 unit/g-0.1 % ointment See Rx Instructions .ROUTE .COMPLEX 0RF Rx Instructions: apply 1/4 amount of ointment to both eyelids tid Elderberry Gummies 2 tab PO DAILY 0RF Discontinued omeprazole 20 mg capsule,delayed release(DR/EC) 20 mg PO BID 0RF Discharge Orders: Discharge Order (Routine); Ordered 09/06/21 Ordered By: Dada Huntley Referrals: Kuldip Winslow MD [Primary Care Provider] - 4-7 days (CBC on follow-up) Discharge Diet: Usual diet Discharge Activity: Increase activity as tolerated Patient Instructions: Opioid Safety Activity Restrictions/Additional Instructions: Soft diet. CBC on follow-up Visit with your primary care provider when a colonoscopy will next be indicated Your hemoglobin A1c was significantly elevated at 8.5%. You may need some medicine for her diabetes as diet control does not appear to be sufficient. Discussed this with your primary care provider. Discharge Attestations Time Spent in Discharge Care*: greater than 30 min Quality Metrics Clinical Quality Measures [ No reported AMI, CVA or VTE this stay] Coding Level of Care Code Acute [facility] note Diagnoses Lower GI bleed K92.2 Type 2 diabetes mellitus E11.9 Hypertension I10
--- NOTE | 2021-09-06 08:38 | PM.PN ---
Subjective Subjective: The patient says she has not had any further bleeding. It sounds like arrangements are being made for her do not go home. Vitals/I&O/Wt Last Vital Signs Temp 97.8 F 09/06/21 03:43 Pulse 62 09/06/21 05:34 Resp 17 09/06/21 03:43 BP 146/75 09/06/21 03:43 Pulse Ox 94 09/06/21 03:43 09/05/21 09/06/21 09/06/21 22:59 06:59 14:59 Intake Total 0 / 1300 250 / 1300 Balance 0 / 1300 250 / 1300 Physical Exam Narrative: Abdominal exam remains benign. Data : 09/06/21 04:07 09/06/21 04:07 A&P Assessment and plan (1) Lower GI bleed: The patient's presentation CAT scan was reviewed. I agree with the assessment of possible ongoing hemorrhage at that time in the distal ascending colon as evidenced by the blush that is present. The patient has had multiple colonoscopies over the years. I made her aware that colonoscopy might be helpful in locating the source of bleeding but we cannot typically fix diverticular bleeding endoscopically. We discussed angiography, placement of coils by an interventional radiologist, etc. Fortunately, it appears that once again the patient's bleeding has stopped by itself. I believe she is going home later today. Status: Acute (2) Diverticulosis: Seems rather extensive on imaging. Plan as above. Status: Acute Attestations Medical Necessity Statement*: See admitting service's notation. Coding Level of Care Code Acute [employer] for [facility] Adriana Diagnoses Lower GI bleed K92.2 Diverticulosis K57.90
== END 2021-09-06 10:20 | disposition home or self-care (01) | DRG 378 ==
LOC: ER 09-04 01:19 → MEDSURG 09-04 06:31 → ER IP 09-04 06:44 → MEDSURG 09-04 06:44
PROVIDERS: Admitting Provider Family Medicine; Emergency Provider Emergency Medicine; PCP Family Medicine; Visit Provider Internal Medicine
DX: K57.31 Diverticulosis of large intestine without perforation or abscess with bleeding (principal); D62 Acute posthemorrhagic anemia; Z85.41 Personal history of malignant neoplasm of cervix uteri; E11.9 Type 2 diabetes mellitus without complications; J45.909 Unspecified asthma, uncomplicated; Z79.51 Long term (current) use of inhaled steroids
CPT/HCPCS: 36415; 36416; 74177; 80053; 82962; 83036; 83735; 85014; 85018; 85025; 85610; 86850; 86900; 99285; C9113; G0378; J3475; Q9967

== ENCOUNTER → 2022-01-09 12:06 | Outpatient (BNVA) | payer MEDICARE, BC, SELFPAY | PROVIDERS: PCP Family Medicine; Visit Provider Clinical Nurse Specialist Adult Health | DX: R30.0 Dysuria (principal) | CPT/HCPCS: 81000 ==

== ENCOUNTER 2022-07-22 09:19 | Emergency (ER) | payer MEDICARE, SELFPAY ==
[2022-07-22 09:25] VITALS: BP 178/105; PULSE 64; RESP 18; TEMP 36.5; O2SAT 96; BMI 45.4
--- NOTE | 2022-07-22 09:29 | XRR_ITS ---
PROCEDURE INFORMATION: Exam: XR Abdomen Exam date and time: 07/22/2022 9:54 AM Age: 77 years old Clinical indication: Pain; Other: Flank; Additional info: Flank pain TECHNIQUE: Imaging protocol: Radiologic exam of the abdomen. Views: Frontal supine view of the abdomen. 1 View. COMPARISON: CT abdomen pelvis w con* [id number] 09/03/2021 9:29 PM FINDINGS: Gastrointestinal tract: Normal. No bowel dilation. Intraperitoneal space: Surgical clips are present in the right upper quadrant. Bones/joints: Unremarkable. XR/XR KUB portable [id number] IMPRESSION: No acute abnormality.
[2022-07-22 10:06] LABS: Alanine Aminotransferase 23 U/L (0-33); Albumin Level 3.6 g/dL (3.5-5.2); Alkaline Phosphatase 73 U/L (35-105); Anion Gap 10.8 (5-19); Aspartate Amino Transferase 20 U/L (0-32); Blood Urea Nitrogen 13 mg/dL (8-23); Calcium 9.2 mg/dL (8.5-10.5); Carbon Dioxide 27 mmol/L (22-29); Chloride 97 mmol/L (98-107); Glucose 353 mg/dL (65-115); Osmolality Calculated 286 mOsm/kg (285-295); Potassium 3.8 mmol/L (3.5-5.1); Sodium 131 mmol/L (136-145); Total Bilirubin 0.5 mg/dL (0.15-1.2); Total Protein 6.6 g/dL (6.6-8.7)
--- NOTE | 2022-07-22 10:06 | ED_ITS ---
HPI - Female Genitourinary General: Chief complaint: Urogenital-Female Stated complaint: urinary pain Time Seen by Provider: 07/22/22 09:53 Source: patient Mode of arrival: ambulatory Limitations: no limitations History of Present Illness: Patient is a 77-year-old female presents to ED today along with her for concerns of right sided back pain with radiation into her abdomen/groin, urinary frequency, dribbling, dysuria. She states symptoms have progressively worsened over the past 2 to 3 days. She does state a history of kidney stones. Has not noticed any hematuria. No fevers. She has not had any vomiting. MD elicited complaint: dysuria, UTI , back pain and other (possible stone) Onset (ago): day(s) Severity: moderate Consistency: constant Vaginal discharge: none Vaginal bleeding: none Urinary symptoms: Difficulty Urinating, Dysuria, Frequency and Urgency Exacerbating factors: urination Relieving factors: none Associated symptoms: Reports abdominal pain (R groin pain radiating from back); Deny headache(s) or nausea Treatment prior to arrival: none Patient : No Review of Systems Const: Denies: fever(s), chills, body aches, fatigue or malaise Card: Denies: chest pain Resp: Denies: dyspnea GI: Reports: abdominal pain (R groin pain radiating from back); Denies: nausea, vomiting, diarrhea or change in bowel habits : Reports: dysuria, urinary frequency, urinary urgency and urinary hesitancy; Denies: flank pain, dribbling, oliguria, urinary incontinence or hematuria Musc: Reports: back pain; Denies: neck pain, extremity pain or joint pain Skin/Breast: Denies: rash Neuro: Denies: headache(s), numbness in extremities, weakness in extremities or sensory changes PFS ED PFSH: Medical History Asthma Cervical cancer Status post hysterectomy Diverticulosis History of GI diverticular bleed Lower GI bleed Type 2 diabetes mellitus Surgical History History of ankle surgery R x 2 / L x 1 --multiple fractures History of cataract surgery History of cholecystectomy History of colonoscopy Multiple History of dilatation and curettage / biopsies x 7 History of hysterectomy History of tonsillectomy Patellar disorder Right --debridement following a chip fracture Family History Mother Cancer Father Cancer Social History Smoking and tobacco status: never smoked Alcohol intake: never Physical Exam Const: COMMON NORMALS: patient oriented x3, no limitations and alert GENERAL APPEARANCE: cooperative NUTRITIONAL APPEARANCE: obese morbidly obese ORIENTATION/CONSCIOUSNESS: Yes awake, Yes oriented to person, Yes oriented to place and Yes oriented to time HENMT: COMMON NORMALS: normocephalic and atraumatic HEAD & SCALP: normal to inspection, normocephalic and atraumatic Resp: COMMON NORMALS: normal respiratory effort and clear to auscultation bilaterally AUSCULTATION: clear to auscultation bilaterally Cardio: COMMON NORMALS: regular rate and regular rhythm RATE: regular rate RHYTHM: regular rhythm GI: COMMON NORMALS: Normal to inspection, nondistended, normoactive bowel sounds present, Soft to palpation, non-tender, No hepatosplenomegaly present and no masses INSPECTION: Yes normal to inspection AUSCULTATION: Yes normoactive bowel sounds PALPATION: Yes Soft to palpation, No Guarding due to palpation present (GI), No Rigid due to palpation and Yes No hepatosplenomegaly present : COMMON NORMALS: Yes no CVA tenderness BLADDER/KIDNEY EXAM: Yes no CVA tenderness Back/Pelvis: COMMON NORMALS: no CVA tenderness, thoracic and lumbar spine normal to inspection, no thoracic nor lumbar tenderness and thoraco-lumbar ROM normal LUMBAR SPINE/LOWER BACK: Yes paraspinal muscle tenderness Lumbar paraspinal muscle tenderness: right and Yes straight leg raise negative bilaterally PELVIS: Yes sciatic notch tenderness Extremity: COMMON NORMALS: normal to inspection and full ROM GENERAL: Yes normal exam except as noted Neuro: KAMI COMA SCALE: document GCS findings Kami coma scale eye opening: Spontaneous [place] coma scale verbal response: Orientated [place] coma scale motor response: Obey commands [place] coma scale total score: 15 COMMON NORMALS: patient oriented x3, moves all extremities, no focal motor deficits, no sensory deficits noted and gait normal SENSORIUM/ORIENTATION: Yes alert, Yes oriented to person, Yes oriented to place and Yes oriented to time Skin: COMMON NORMALS: no rashes or lesions noted GENERAL SKIN EXAM: no rashes or lesions noted Course Vital Signs: Vital signs: Vital Signs Temperature 97.7 F 07/22/22 09:25 Pulse Rate 64 07/22/22 12:58 Respiratory Rate 18 07/22/22 12:58 Blood Pressure 178/105 07/22/22 12:58 Pulse Oximetry 96 07/22/22 09:25 Oxygen Delivery Me thod 07/22/22 09:25 MDM - Female Medical Decision Making History certainly suspicious for a ureter stone. UA is not convincing with negative blood. She did have 0-4 RBCs. It does not look suspicious for infection. CT imaging was obtained which did not show any obstructing renal or ureteral calculi. She did have some early diverticulitis seen within the sigmoid colon. I do feel this was probably an incidental finding but will go ahead and treat. Other differentials for her back pain includes lumbar radiculopathy/sciatica/degenerative disc disease/facet arthropathy. Recommend she follow up with PCP this week for re-evaluation. Return to ED precautions giv en. Lab Data 07/22/22 09:35 07/22/22 09:35 Radiology Impressions KUB X-Ray 07/22/22 09:29 IMPRESSION: No acute abnormality. Abdomen/Pelvis CT 07/22/22 10:41 IMPRESSION: 1. No obstructing renal or ureteral calculi. No hydronephrosis in either kidney. 2. Extensive diverticulosis. Slight induration in the sigmoid colon can be seen with mild or early diverticulitis. Recommend correlation with infection. 3. Prior hysterectomy and cholecystectomy. 4. RIGHT groin is normal in appearance. 5. Diffuse fatty infiltration the liver. 6. Small esophageal hiatal hernia. Laboratory Results WBC 7.2 10^3/uL (4.0-10.0) 07/22/22 09:35 RBC 4.95 10^6/uL (4.1-5.3) 07/22/22 09:35 Hgb 14.7 g/dL (11.5-15.3) 07/22/22 09:35 Hct 45.4 % (37.0-47.0) 07/22/22 09:35 MCV 91.7 fl (81-99) 07/22/22 09:35 MCH 29.7 pg (28.0-34.0) 07/22/22 09:35 MCHC 32.4 g/dL (30.0-36.0) 07/22/22 09:35 RDW 12.8 % (12.1-15.1) 07/22/22 09:35 Plt Count 162 10^3/cmm (130-400) 07/22/22 09:35 MPV 12.7 fL (7.4-10.4) H 07/22/22 09:35 Neut % (Auto) 60.2 % 07/22/22 09:35 Lymph % (Auto) 29.4 % 07/22/22 09:35 [place] % (Auto) 8.2 % 07/22/22 09:35 Eos % (Auto) 1.2 % 07/22/22 09:35 Baso % (Auto) 0.6 % 07/22/22 09:35 Neut # (Auto) 4.34 10^3/uL (1.8-7.7) 07/22/22 09:35 Lymph # (Auto) 2.1 10^3/uL (0.8-4.8) 07/22/22 09:35 [place] # (Auto) 0.6 10^3/uL (0.2-0.9) 07/22/22 09:35 Eos # (Auto) 0.1 10^3/uL (0.0-0.8) 07/22/22 09:35 Baso # (Auto) 0.0 10^3/uL (0.0-0.1) 07/22/22 09:35 Nucleated RBC % (auto) 0 % 07/22/22 09:35 Nucleated RBCs # 0.0 /100WBC 07/22/22 09:35 Sodium 131 mmol/L (136-145) L 07/22/22 09:35 Potassium 3.8 mmol/L (3.5-5.1) 07/22/22 09:35 Chloride 97 mmol/L (98-107) L 07/22/22 09:35 Carbon Dioxide 27 mmol/L (22-29) 07/22/22 09:35 Anion Gap 10.8 (5-19) 07/22/22 09:35 BUN 13 mg/dL (8-23) 07/22/22 09:35 Creatinine 0.8 mg/dL (0.5-0.9) 07/22/22 09:35 GFR Calculation Not Reportable 02/06/23 09:35 Glucose 353 mg/dL (65-115) H 07/22/22 09:35 Calculated Osmolality 286 mOsm/kg (285-295) 07/22/22 09:35 Calcium 9.2 mg/dL (8.5-10.5) 07/22/22 09:35 Total Bilirubin 0.5 mg/dL (0.15-1.2) 07/22/22 09:35 AST 20 U/L (0-32) 07/22/22 09:35 ALT 23 U/L (0-33) 07/22/22 09:35 Alkaline Phosphatase 73 U/L (35-105) 07/22/22 09:35 Total Protein 6.6 g/dL (6.6-8.7) 07/22/22 09:35 Albumin 3.6 g/dL (3.5-5.2) 07/22/22 09:35 Globulin 3.0 g/dL (1.3-4.6) 07/22/22 09:35 Urine Color Yellow (Yellow) 07/22/22 09:40 Urine Appearance Clear (CLEAR) 07/22/22 09:40 Urine pH 6 (5-7) 07/22/22 09:40 Ur Specific [place] 1.015 (1.005-1.030) 07/22/22 09:40 Urine Protein Trace (Negative) 07/22/22 09:40 Urine Glucose (UA) 4+ (Normal) H 07/22/22 09:40 Urine Ketones Negative (Negative) 07/22/22 09:40 Urine Blood Neg (Negative) 07/22/22 09:40 Urine Nitrate Negative (Negative) 07/22/22 09:40 Urine Bilirubin Neg (Negative) 07/22/22 09:40 Urine Urobilinogen Neg mg/dL (Negative) 07/22/22 09:40 Ur Leukocyte Esterase Negative (Negative) 07/22/22 09:40 Urine RBC 0-4 /hpf (0-2) H 07/22/22 09:40 Urine WBC Rare /hpf (0-5) 07/22/22 09:40 Ur Squamous Epith Cells 0-4 /hpf (0-5) H 07/22/22 09:40 Amorphous Sediment Not Reportable 07/22/22 09:40 Urine Bacteria None /hpf (NONE) 07/22/22 09:40 Discharge Plan Discharge Patient Disposition: Home Clinical Impression: Diverticulitis Acute right-sided low back pain Qualifiers: Sciatica presence: without sciatica Qualified Code(s): M54.50 - Low back pain, unspecified Condition: Stable Prescriptions: New metronidazole 500 mg tablet 500 mg PO BID 7 Days Qty: 14 0RF Cipro 500 mg tablet 500 mg PO Q12H Qty: 14 0RF No Action diphenoxylate-atropine 2.5-0.025 mg tablet 1 tab PO BID PRN (Reason: Diarrhea) Qty: 60 5RF omeprazole 20 mg capsule,delayed release(DR/EC) See Rx Instructions .ROUTE .COMPLEX Qty: 180 3RF Dose Instruction: TAKE 1 TABLET BY MOUTH TWICE A DAY FOR GERD Rx Instructions: TAKE 1 TABLET BY MOUTH TWICE A DAY FOR GERD ferrous sulfate 325 mg (65 mg iron) tablet See Rx Instructions .ROUTE .COMPLEX Qty: 180 3RF Dose Instruction: TAKE 1 TABLET BY MOUTH TWICE A DAY Rx Instructions: TAKE 1 TABLET BY MOUTH TWICE A DAY desloratadine 5 mg tablet 5 mg PO DAILY Qty: 90 3RF lisinopril-hydrochlorothiazide 20-12.5 mg tablet 1 tab PO QAM Qty: 90 3RF multivitamin Tablet 1 tab PO DAILY azelastine 137 mcg (0.1 %) aerosol,spray 2 spray INTRANASAL BID albuterol sulfate 90 mcg/actuation HFA aerosol inhaler 2 puff INHALATION QID PRN (Reason: Shortness Of Breath) neomycin-polymyxin B-dexameth 3.5 mg/g-10,000 unit/g-0.1 % ointment See Rx Instructions .ROUTE .COMPLEX Rx Instructions: apply 1/4 amount of ointment to both eyelids tid Elderberry Gummies 2 tab PO DAILY metoprolol tartrate 50 mg tablet 50 mg PO TID Discharge Orders: Discharge ED (Routine); Ordered 07/22/22 Ordered By: Candice Teran Referrals: Kuldip Winslow MD [Primary Care Provider] - Coding Level of Care Code ED [employer] [facility]
[2022-07-22 10:11] LABS: Basophils % 0.6 %; Eosinophils # 0.1 10^3/uL (0.0-0.8); Eosinophils % 1.2 %; Hematocrit 45.4 % (37.0-47.0); Hemoglobin 14.7 g/dL (11.5-15.3); Lymphocytes # 2.1 10^3/uL (0.8-4.8); Lymphocytes % 29.4 %; Mean Corpuscular HGB Conc 32.4 g/dL (30.0-36.0); Mean Corpuscular Hemoglobin 29.7 pg (28.0-34.0); Mean Corpuscular Volume 91.7 fl (81-99); Mean Platelet Volume 12.7 fL (7.4-10.4); Monocytes # 0.6 10^3/uL (0.2-0.9); Monocytes % 8.2 %; Neutrophils # 4.34 10^3/uL (1.8-7.7); Neutrophils % 60.2 %; Nucleated Red Blood Cells % 0 %; Platelet Count 162 10^3/cmm (130-400); Red Blood Count 4.95 10^6/uL (4.1-5.3); Red Cell Distribution Width 12.8 % (12.1-15.1); White Blood Count 7.2 10^3/uL (4.0-10.0)
[2022-07-22 10:35] LABS: Add Urine Culture? No; Add Urine Microscopic? YES; Bilirubin Urine Neg (Negative); Blood Urine Neg (Negative); Glucose Urine UA 4+ (Normal); Ketones Urine Negative (Negative); Leukocyte Esterase Urine Negative (Negative); Nitrate Urine Negative (Negative); Protein Urine Trace (Negative); RBC Urine 0-4 /hpf (0-2); Specific Gravity, Urine 1.015 (1.005-1.030); Squamous Epithelial Cell Urine 0-4 /hpf (0-5); Urine Appearance Clear (CLEAR); Urine Color Yellow (Yellow); Urobilinogen Urine Neg (Negative); WBC Urine RARE /hpf (0-5); pH Urine 6 (5-7)
--- NOTE | 2022-07-22 10:41 | CT_ITS ---
WS: [id number] CT ABDOMEN PELVIS TECHNIQUE: Noncontrast CT of the abdomen and pelvis with coronal and sagittal reformatted images. CLINICAL INFORMATION: R back/groin pain, urinary complaints COMPARISON: None. DLP: 1155.[address] scans at [facility] use at least one of these dose optimization techniques: automated e xposure control; mA and/or kV adjustment per patient size (includes targeted exams where dose is matc hed to clinical indication); or iterative reconstruction. FINDINGS: Diffuse fatty infiltration liver. Prior cholecystectomy. Small LEFT adrenal adenoma. Prior hysterecto my. RIGHT adrenal gland is normal. Normal noncontrast spleen. Small esophageal hiatal hernia. Lung ba ses are well aerated. Extensive diverticulosis. Slight thickening of the distal sigmoid colon can be seen with mild or juve y diverticulitis. Recommend correlation with infection or colonic symptoms. No high-grade small or la rge bowel obstruction. Normal appendix in the RIGHT lower quadrant. Normal caliber abdominal aorta. R IGHT groin is normal in appearance. No inguinal lymphadenopathy. No significant RIGHT inguinal hernia . Cortical atrophy both kidneys. Pelvic phleboliths. No obstructing renal or ureteral calculi. A few ti ny nonobstructing RIGHT calyceal tip calculi. CT/CT kidney stone [id number] IMPRESSION: 1. No obstructing renal or ureteral calculi. No hydronephrosis in either kidne y. 2. Extensive diverticulosis. Slight induration in the sigmoid colon can be see n with mild or early diverticulitis. Recommend correlation with infection. 3. Prior hysterectomy and cholecystectomy. 4. RIGHT groin is normal in appearance. 5. Diffuse fatty infiltration the liver. 6. Small esophageal hiatal hernia.
[2022-07-22 10:54] VITALS: RESP 18
[2022-07-22] MEDS: morphine 4 mg/mL SDV 1 mL IM (10:54)
[2022-07-22 12:58] VITALS: BP 178/105; PULSE 64; RESP 18
== END 2022-07-22 12:59 | disposition home or self-care (01) ==
PROVIDERS: Family Medicine; Emergency Provider Physician Assistant; PCP Family Medicine
DX: M54.50 Low back pain, unspecified (principal); K57.92 Diverticulitis of intestine, part unspecified, without perforation or abscess without bleeding; Z85.41 Personal history of malignant neoplasm of cervix uteri; E11.9 Type 2 diabetes mellitus without complications
CPT/HCPCS: 74018; 74176; 80053; 81001; 85025; 96372; 99284; J2270

== ENCOUNTER 2022-11-02 18:57 | Emergency (ER) | payer MEDICARE, BC, SELFPAY ==
[2022-11-02 19:04] VITALS: BP 154/88; PULSE 67; RESP 18; TEMP 36.7; O2SAT 95; BMI 46.5
--- NOTE | 2022-11-02 19:38 | XRR_ITS ---
PROCEDURE INFORMATION: Exam: XR Bilateral Hips Exam date and time: 11/02/2022 8:09 PM Age: 77 years old Clinical indication: Injury or trauma; Fall; Sprain or strain; Bilateral; Hip; Additional info: Fall injury TECHNIQUE: Imaging protocol: Radiologic exam of the bilateral hips. Views: 2 views of hips with pelvis when performed. COMPARISON: CT kidney stone [id number] 07/22/2022 11:07 AM FINDINGS: Bones/joints: No obvious acute fracture dislocation. Mild acetabular spurring consistent with early degenerative disease. Soft tissues: Five views submitted. Details are limited due to body habitus. Vasculature: Multiple pelvic calcifications are likely phleboliths. XR/XR hip BI 3-4V wo/w pel [id number] IMPRESSION: No obvious acute fracture dislocation.
--- NOTE | 2022-11-02 19:52 | XRR_ITS ---
PROCEDURE INFORMATION: Exam: XR Right Forearm Exam date and time: 11/02/2022 8:09 PM Age: 77 years old Clinical indication: Injury or trauma; Fall; Sprain or strain; Arm, lower; Right; Additional info: Fall injury TECHNIQUE: Imaging protocol: Radiologic exam of the right forearm. Views: 2 views. COMPARISON: No relevant prior studies available. FINDINGS: Bones/joints: Probable osteopenia. No acute fracture dislocation. Soft tissues: Multiple overlying garment artifacts. No obvious soft tissue gas. Other findings: Two views submitted. XR/XR forearm RT 2V [id number] IMPRESSION: No acute fracture.
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
[2022-11-02 19:57] VITALS: BP 163/106; PULSE 70; RESP 16; O2SAT 96
[2022-11-02 20:25] VITALS: RESP 16
[2022-11-02] MEDS: morphine 4 mg/mL SDV 1 mL IM (20:25)
[2022-11-02 20:26] VITALS: BP 163/106; PULSE 65; RESP 16; O2SAT 99
[2022-11-02 21:51] VITALS: BP 168/102; PULSE 66; RESP 16; O2SAT 96
[2022-11-02] MEDS: TRAMadol 50 mg Tablet PO (21:54)
--- NOTE | 2022-11-02 21:55 | PC.NURSE ---
tramadol sent home with pt per sima julian
[2022-11-02] MEDS: ondansetron 2 mg/ML SDV 2 mL 4 MG IM (22:02)
--- NOTE | 2022-11-03 05:21 | DCPLANNER ---
Addendum entered by Aruna Seals 11/11/22 10:20: Patient had a follow up appointment scheduled with ortho - patient did attend appointment. Original Note: clinical team manager had message to schedule a follow up appointment for patient with ortho. clinical team manager sent patients information to the front office staff at ortho. Patients information will be printed and reviewed. Clinic will call patient with appointment information.
== END 2022-11-02 22:11 | disposition home or self-care (01) ==
PROVIDERS: Emergency Provider Physician Assistant; PCP Family Medicine
DX: M79.652 Pain in left thigh (principal); M79.631 Pain in right forearm
CPT/HCPCS: 73090; 73522; 96372; 99284; J2270; J2405

== ENCOUNTER → 2022-11-07 14:08 | Outpatient (BNVA) | payer MEDICARE, BC, SELFPAY | PROVIDERS: PCP Family Medicine; Referring Provider Physician Assistant; Visit Provider Nurse Practitioner Family | DX: S76.012A Strain of muscle, fascia and tendon of left hip, initial encounter; S76.212A Strain of adductor muscle, fascia and tendon of left thigh, initial encounter; W01.0XXA Fall on same level from slipping, tripping and stumbling without subsequent striking against object, initial encounter | CPT/HCPCS: 99214 ==

== ENCOUNTER 2023-05-19 09:18 | Outpatient (RCR) | payer MEDICARE, BC, SELFPAY | END 2023-06-15 23:59 | disposition home or self-care (01) | LOC: SPT 09:18 | PROVIDERS: Visit Provider Family Medicine | DX: R29.6 Repeated falls (principal) | CPT/HCPCS: 97112; 97161 ==

== ENCOUNTER → 2023-08-28 14:19 | Outpatient (BNVA) | payer MEDICARE, BC, SELFPAY | PROVIDERS: PCP Family Medicine; Visit Provider Podiatrist Foot & Ankle Surgery | DX: L60.0 Ingrowing nail (principal) | CPT/HCPCS: 11750; 99203; A6219 ==

== ENCOUNTER → 2023-09-11 08:02 | Outpatient (BNVA) | payer MEDICARE, BC, SELFPAY | PROVIDERS: PCP Family Medicine; Visit Provider Podiatrist Foot & Ankle Surgery | DX: L60.0 Ingrowing nail (principal) | CPT/HCPCS: 11750 ==

== ENCOUNTER → 2023-09-24 09:18 | Outpatient (BNVA) | payer MEDICARE, BC, SELFPAY | PROVIDERS: PCP Family Medicine; Visit Provider Podiatrist Foot & Ankle Surgery | DX: L60.0 Ingrowing nail | CPT/HCPCS: 73630; 99213 ==

== ENCOUNTER → 2024-01-15 09:06 | Outpatient (BNVA) | payer MEDICARE, BC, SELFPAY | PROVIDERS: PCP Family Medicine; Visit Provider Family Medicine | DX: I10 Essential (primary) hypertension (principal); E11.9 Type 2 diabetes mellitus without complications; J32.9 Chronic sinusitis, unspecified; R00.2 Palpitations | CPT/HCPCS: 80053; 80061; 82607; 83036; 83735; 83880; 84443; 85025; 86140 ==

== ENCOUNTER 2024-03-08 17:45 | Emergency (ER) | payer MEDICARE, BC, SELFPAY ==
[2024-03-08 17:53] VITALS: BP 193/103; PULSE 76; RESP 15; TEMP 36.7; O2SAT 96; BMI 42.1
--- NOTE | 2024-03-08 18:37 | ED_ITS ---
HPI - GI Bleed 2 General: Chief complaint: GI Bleed Stated complaint: bleeding from rectum Time Seen by Provider: 03/08/24 18:09 History of Present Illness: 78-year-old female with a history of GI bleeds in the past, diverticulosis, hypertension, diabetes and obesity who presents the emergency room with bright red blood per rectum. She says she is had GI bleeds that were black tarry and she has had to have transfusions in the past and has been admitted to [facility] in the past. She says she feels bloated but no focal abdominal pain. No nausea or vomiting. She does states she thinks has a history of diverticulosis. Related Data Home Medications Medication Instructions Recorded Confirmed Elderberry Gummies 2 tab PO DAILY 09/04/21 02/12/24 albuterol sulfate 90 mcg/actuation 2 puff inhalation QID PRN 09/04/21 02/12/24 aerosol inhaler Shortness Of Breath multivitamin 1 tab PO DAILY 09/04/21 02/12/24 neomycin 3.5 mg/g-polymyxin B See Rx Instructions .Route .COMPLEX 09/04/21 02/12/24 10,000 unit/g-dexameth 0.1 % eye oint desloratadine 5 mg tablet mg 11/02/22 02/12/24 ferrous sulfate 325 mg (65 mg mg 11/02/22 02/12/24 iron) tablet lisinopril 20 tab 11/02/22 02/12/24 mg-hydrochlorothiazide 12.5 mg tablet metoprolol tartrate 50 mg tablet mg 11/02/22 02/12/24 Previous Rx's Medication Instructions Recorded methocarbamol 750 mg tablet 750 mg PO Q8H PRN Muscle spasms or 11/02/22 pain #20 tabs omeprazole 20 mg capsule,delayed See Rx Instructions .Route 03/12/23 release .COMPLEX #180 caps diphenoxylate-atropine 2.5 1 tab PO BID PRN Diarrhea #60 tabs 03/24/23 mg-0.025 mg tablet desloratadine 5 mg tablet See Rx Instructions .Route 06/19/23 .COMPLEX #90 tabs ferrous sulfate 325 mg (65 mg See Rx Instructions .Route 06/19/23 iron) tablet .COMPLEX #180 tabs azelastine 137 mcg (0.1 %) nasal 2 spray intranasal BID #30 mL 06/24/23 spray lisinopril 20 See Rx Instructions .Route 07/14/23 mg-hydrochlorothiazide 12.5 mg .COMPLEX #90 tabs tablet metoprolol tartrate 50 mg tablet See Rx Instructions .Route 07/14/23 .COMPLEX #270 tabs benzonatate 100 mg capsule 100 mg PO TID PRN cough #45 caps 07/21/23 mupirocin 2 % topical ointment 1 applic topical DAILY #22 grams 09/11/23 amoxicillin 500 mg-potassium 1 tab PO TID 10 days #30 tabs 01/15/24 clavulanate 125 mg tablet (Augmentin) glimepiride 2 mg tablet 2 mg PO BID #60 tabs 01/22/24 Allergies Allergy/AdvReac Type Severity Reaction Status Date / Time acetaminophen Allergy Unconscious Verified 03/08/24 18:02 [From Darvocet-N] codeine Allergy ADR-Drowsy Verified 03/08/24 18:02 erythromycin base Allergy Unconscious Verified 03/08/24 18:02 oxycodone [From Percocet] Allergy ADR-Vomitin Verified 03/08/24 18:02 g propoxyphene Allergy Unconscious Verified 03/08/24 18:02 [From Darvocet-N] Review of Systems 2 Narrative: Constitutional symptoms: Negative except as documented in HPI. Skin symptoms: Negative except as documented in HPI. Eye symptoms: Negative except as documented in HPI. ENMT symptoms: Negative except as documented in HPI. Respiratory symptoms: Negative except as documented in HPI. Cardiovascular symptoms: Negative except as documented in HPI. Gastrointestinal symptoms: Negative except as documented in HPI. Genitourinary symptoms: Negative except as documented in HPI. Musculoskeletal symptoms: Negative except as documented in HPI. Neurologic symptoms: Negative except as documented in HPI. Psychiatric symptoms: Negative except as documented in HPI. Endocrine symptoms: Negative except as documented in HPI. PFSH ED 2 PFSH: Medical History Diverticulosis Cervical cancer Status post hysterectomy Asthma Type 2 diabetes mellitus History of GI diverticular bleed Lower GI bleed Surgical History Patellar disorder Right --debridement following a chip fracture History of ankle surgery R x 2 / L x 1 --multiple fractures History of tonsillectomy History of dilatation and curettage / biopsies x 7 History of cholecystectomy History of hysterectomy History of cataract surgery History of colonoscopy Multiple Family History Mother Cancer Father Cancer Social History Smoking and tobacco/nicotine status: unknown if used tobacco/nicotine Alcohol intake: never Physical Exam 2 Narrative: EXAM NARRATIVE: General: Alert, no acute distress. Skin: Warm, dry. Head: Normocephalic, atraumatic. Neck: Supple, trachea midline. Eye: Extraocular movements are intact. Ears, nose, mouth and throat: mucosa moist. Cardiovascular: Regular, Normal peripheral perfusion. Respiratory: Lungs are clear to auscultation, respirations are non-labored, breath sounds are equal, Symmetrical chest wall expansion. Gastrointestinal: Soft, Nontender, Non distended Musculoskeletal: Normal ROM, no deformity. Neurological: Alert and oriented, No focal neurological deficit observed. Psychiatric: Cooperative, appropriate mood & affect. Course 2 Vital Signs: Vital signs: Vital Signs Temperature 98.1 F 03/08/24 17:53 Pulse Rate 66 03/08/24 18:39 Respiratory Rate 16 03/08/24 18:39 Blood Pressure 163/63 03/08/24 18:39 Pulse Oximetry 100 03/08/24 18:39 Oxygen Delivery Me thod Room Air 03/08/24 18:39 MDM - GI Bleed Medical Decision Making Medical decision making: Differential diagnosis including but not limited to and based on the above HPI, review of systems and physical exam: Patient with bright red blood per rectum without concern for anemia. Concern for diverticulosis with bleeding. Internal hemorrhoids. Orders placed to evaluate differential diagnosis based on the above differential, HPI and physical exam Lab Review: Laboratory results were reviewed and interpreted by myself the emergency room physician. No leukocytosis. No anemia. Hemoglobin is 14. BUN/creatinine are close normal at 18 and 1.1. No signs of GI bleeding that are significant. She has had 2 more bowel movements here that have been nonbloody. I reviewed the patient's medical record. Reexamination: Patient remained stable. No increased work of breathing. No altered mental status. No focal motor deficits. Assessment and plan: Bright red blood per rectum - Discharged home - Discussed plan with patient. Answered any questions. - Evaluation and treatment of this problem were appropriate in the emergency setting. Lab Data 03/08/24 18:35 03/08/24 18:35 Laboratory Results WBC 7.34 10^3/uL (3.29-11.43) 03/08/24 18:35 RBC 4.51 10^6/uL (3.85-5.65) 03/08/24 18:35 Hgb 14.00 g/dL (11.27-16.99) 03/08/24 18:35 Hct 41.9 % (36-47) 03/08/24 18:35 MCV 92.9 fl (85-98) 03/08/24 18:35 MCH 31.0 pg (27-33) 03/08/24 18:35 MCHC 33.4 g/dL (30-55) 03/08/24 18:35 RDW 13.3 % (12.1-15.1) 03/08/24 18:35 Plt Count 194 10^3/cmm (157-399) 03/08/24 18:35 MPV 12.4 fL (7.4-10.4) H 03/08/24 18:35 Neut % (Auto) 58.8 % 03/08/24 18:35 Lymph % (Auto) 30.1 % 03/08/24 18:35 [place] % (Auto) 8.9 % 03/08/24 18:35 Eos % (Auto) 1.5 % 03/08/24 18:35 Baso % (Auto) 0.4 % 03/08/24 18:35 Neut # (Auto) 4.32 10^3/uL (1.8-7.7) 03/08/24 18:35 Lymph # (Auto) 2.2 10^3/uL (0.8-4.8) 03/08/24 18:35 [place] # (Auto) 0.7 10^3/uL (0.2-0.9) 03/08/24 18:35 Eos # (Auto) 0.1 10^3/uL (0.0-0.8) 03/08/24 18:35 Baso # (Auto) 0.0 10^3/uL (0.0-0.1) 03/08/24 18:35 Nucleated RBC % (auto) 0 % 03/08/24 18:35 Nucleated RBCs # 0.0 /100WBC 03/08/24 18:35 PT 12.80 SECONDS (12.1-14.9) 03/08/24 18:35 INR 0.93 (0.8-1.2) 03/08/24 18:35 Sodium 141 mmol/L (136-145) 03/08/24 18:35 Potassium 3.6 mmol/L (3.5-5.1) 03/08/24 18:35 Chloride 103 mmol/L (98-107) 03/08/24 18:35 Carbon Dioxide 25 mmol/L (22-29) 03/08/24 18:35 Anion Gap 16.6 (5-19) 03/08/24 18:35 BUN 18 mg/dL (8-23) 03/08/24 18:35 Creatinine 1.1 mg/dL (0.5-0.9) H 03/08/24 18:35 GFR Calculation Not Reportable 03/08/24 18:35 Glucose 209 mg/dL (65-115) H 03/08/24 18:35 Calculated Osmolality 300 mOsm/kg (285-295) H 03/08/24 18:35 Calcium 9.3 mg/dL (8.5-10.5) 03/08/24 18:35 Total Bilirubin 0.3 mg/dL (0.15-1.2) 03/08/24 18:35 AST 22 U/L (0-32) 03/08/24 18:35 ALT 25 U/L (0-33) 03/08/24 18:35 Alkaline Phosphatase 69 U/L (35-105) 03/08/24 18:35 Total Protein 7.2 g/dL (6.6-8.7) 03/08/24 18:35 Albumin 4.0 g/dL (3.5-5.2) 03/08/24 18:35 Globulin 3.2 g/dL (1.3-4.6) 03/08/24 18:35 No radiology studies performed this visit Discharge Plan Discharge Patient Disposition: Home Clinical Impression: Hematochezia Condition: Stable Prescriptions: No Action benzonatate 100 mg capsule 100 mg PO TID PRN (Reason: cough) Qty: 45 0RF mupirocin 2 % ointment 1 applic topical DAILY Qty: 22 0RF amoxicillin-pot clavulanate [Augmentin] 500-125 mg tablet 1 tab PO TID 10 Days Qty: 30 0RF glimepiride 2 mg tablet 2 mg PO BID Qty: 60 11RF omeprazole 20 mg capsule,delayed release(DR/EC) See Rx Instructions .ROUTE .COMPLEX Qty: 180 3RF Dose Instruction: TAKE 1 TABLET BY MOUTH TWICE A DAY FOR GERD Rx Instructions: TAKE 1 TABLET BY MOUTH TWICE A DAY FOR GERD diphenoxylate-atropine 2.5-0.025 mg tablet 1 tab PO BID PRN (Reason: Diarrhea) Qty: 60 5RF ferrous sulfate 325 mg (65 mg iron) tablet See Rx Instructions .ROUTE .COMPLEX Qty: 180 3RF Dose Instruction: TAKE 1 TABLET BY MOUTH TWICE A DAY Rx Instructions: TAKE 1 TABLET BY MOUTH TWICE A DAY desloratadine 5 mg tablet See Rx Instructions .ROUTE .COMPLEX Qty: 90 3RF Dose Instruction: TAKE 1 TABLET BY MOUTH EVERY DAY Rx Instructions: TAKE 1 TABLET BY MOUTH EVERY DAY azelastine 137 mcg (0.1 %) aerosol,spray 2 spray INTRANASAL BID Qty: 30 11RF metoprolol tartrate 50 mg tablet See Rx Instructions .ROUTE .COMPLEX Qty: 270 3RF Dose Instruction: TAKE 1 TABLET BY MOUTH THREE TIMES A DAY Rx Instructions: TAKE 1 TABLET BY MOUTH THREE TIMES A DAY lisinopril-hydrochlorothiazide 20-12.5 mg tablet See Rx Instructions .ROUTE .COMPLEX Qty: 90 3RF Dose Instruction: TAKE 1 TABLET BY MOUTH EVERY MORNING Rx Instructions: TAKE 1 TABLET BY MOUTH EVERY MORNING multivitamin Tablet 1 tab PO DAILY albuterol sulfate 90 mcg/actuation HFA aerosol inhaler 2 puff INHALATION QID PRN (Reason: Shortness Of Breath) neomycin-polymyxin B-dexameth 3.5 mg/g-10,000 unit/g-0.1 % ointment See Rx Instructions .ROUTE .COMPLEX Rx Instructions: apply 1/4 amount of ointment to both eyelids tid Elderberry Gummies 2 tab PO DAILY ferrous sulfate 325 mg (65 mg iron) tablet metoprolol tartrate 50 mg tablet desloratadine 5 mg tablet lisinopril-hydrochlorothiazide 20-12.5 mg tablet methocarbamol 750 mg tablet 750 mg PO Q8H PRN (Reason: Muscle spasms or pain) Qty: 20 0RF Discharge Orders: Discharge ED (Routine); Ordered 03/08/24 Ordered By: Joelle Houston Referrals: Kuldip Winslow MD [Primary Care Provider] - Discharge Diet: Usual diet Discharge Activity: Resume usual activity Patient Instructions: Rectal Bleeding (ED) Activity Restrictions/Additional Instructions: Thank you for choosing [facility] for your healthcare needs today. Please realize this is an emergency room and that we are providing you with a medical screening exam and this may not be complete and all inclusive of all the testing and or work up that you may need to determine your ailment or severity of your illness. You have been screened and evaluated and felt safe for discharge. Health conditions do change or evolve sometimes and as such it is important that you follow up with your Primary Doctor to be re checked, 3-5 days is a general good time frame for follow up. You are always welcome to return to the ED for re assessment if your symptoms are worsening or you have new concerns Coding Level of Care Code ED Contact Lens Inspector for Luiz Hernandez
[2024-03-08 18:39] VITALS: BP 163/63; PULSE 66; RESP 16; O2SAT 100
[2024-03-08 19:10] LABS: Basophils % 0.4 %; Eosinophils # 0.1 10^3/uL (0.0-0.8); Eosinophils % 1.5 %; Hematocrit 41.9 % (36-47); Lymphocytes # 2.2 10^3/uL (0.8-4.8); Lymphocytes % 30.1 %; Mean Corpuscular HGB Conc 33.4 g/dL (30-55); Mean Corpuscular Volume 92.9 fl (85-98); Mean Platelet Volume 12.4 fL (7.4-10.4); Monocytes # 0.7 10^3/uL (0.2-0.9); Monocytes % 8.9 %; Neutrophils # 4.32 10^3/uL (1.8-7.7); Neutrophils % 58.8 %; Nucleated Red Blood Cells % 0 %; Platelet Count 194 10^3/cmm (157-399); Red Blood Count 4.51 10^6/uL (3.85-5.65); Red Cell Distribution Width 13.3 % (12.1-15.1); White Blood Count 7.34 10^3/uL (3.29-11.43)
[2024-03-08 19:23] LABS: INR 0.93 (0.8-1.2)
[2024-03-08 19:30] LABS: Alanine Aminotransferase 25 U/L (0-33); Alkaline Phosphatase 69 U/L (35-105); Anion Gap 16.6 (5-19); Aspartate Amino Transferase 22 U/L (0-32); Blood Urea Nitrogen 18 mg/dL (8-23); Calcium 9.3 mg/dL (8.5-10.5); Carbon Dioxide 25 mmol/L (22-29); Chloride 103 mmol/L (98-107); Creatinine Clr Calc Pharmacy 49.6538; Globulin 3.2 g/dL (1.3-4.6); Glucose 209 mg/dL (65-115); Osmolality Calculated 300 mOsm/kg (285-295); Potassium 3.6 mmol/L (3.5-5.1); Sodium 141 mmol/L (136-145); Total Bilirubin 0.3 mg/dL (0.15-1.2); Total Protein 7.2 g/dL (6.6-8.7)
[2024-03-08 21:08] VITALS: BP 159/61; PULSE 70; RESP 16; O2SAT 95
== END 2024-03-08 21:09 | disposition home or self-care (01) ==
PROVIDERS: Emergency Medicine; Emergency Provider Emergency Medicine; PCP Family Medicine
DX: K92.1 Melena (principal); Z79.84 Long term (current) use of oral hypoglycemic drugs; Z85.41 Personal history of malignant neoplasm of cervix uteri; E11.9 Type 2 diabetes mellitus without complications
CPT/HCPCS: 80053; 85025; 85610; 99283

== ENCOUNTER → 2024-04-05 07:40 | Outpatient (BNVA) | payer MEDICARE, BC, SELFPAY | PROVIDERS: PCP Family Medicine; Visit Provider Podiatrist Foot & Ankle Surgery | DX: L60.0 Ingrowing nail (principal); M79.671 Pain in right foot; E11.69 Type 2 diabetes mellitus with other specified complication | CPT/HCPCS: 99213 ==

== ENCOUNTER 2024-05-18 12:38 | Outpatient (CLI) | payer MEDICARE, BC, SELFPAY ==
--- NOTE | 2024-05-18 12:42 | XR_ITS ---
WS: [id number] XR wrist RT 2V [id number] REASON FOR EXAM: wrist pain FINDINGS: No acute fracture. Radiocarpal joint is intact and well preserved. Normal scapholunate interval. Carpal bones and carpal bone articulations are normal. No soft tissue abnormality. XR/XR wrist RT 2V [id number] IMPRESSION: No acute abnormality.
--- NOTE | 2024-05-18 12:42 | XR_ITS ---
WS: [id number] XR ribs RT 2V* [id number] REASON FOR EXAM: rib pain/ fall FINDINGS: No rib fracture identified. Underlying pleural and lung are unremarkable. XR/XR ribs RT 2V* [id number] IMPRESSION: No acute abnormality.
== END 2024-05-18 12:39 | disposition home or self-care (01) ==
LOC: RAD 12:41
PROVIDERS: PCP Family Medicine; Visit Provider Family Medicine
DX: R07.81 Pleurodynia (principal); M25.539 Pain in unspecified wrist
CPT/HCPCS: 71100; 73100

== ENCOUNTER 2024-08-20 18:44 | Emergency (ER) | payer MEDICARE, SELFPAY ==
--- NOTE | 2024-08-20 18:57 | XRR_ITS ---
PROCEDURE INFORMATION: Exam: XR Right Knee Exam date and time: 08/20/2024 7:08 PM Age: 79 years old Clinical indication: Right; RT knee pain post fall TECHNIQUE: Imaging protocol: Radiologic exam of the right knee. Views: 3 views. COMPARISON: CR XR foot RT min 3V* [id number] 09/24/2023 9:24 AM FINDINGS: Bones/joints: Mild concavity/impaction injury of the articular lateral femoral condyle. Otherwise no fracture identified no significant malalignment. Mild degenerative spurring in the medial compartment. Minimal if any joint effusion. Soft tissues: Normal. XR/XR knee RT 3V* [id number] IMPRESSION: Questionable subtle concave impaction injury of the lateral femoral condyle. Otherwise no fracture identified.
--- NOTE | 2024-08-20 18:57 | XRR_ITS ---
PROCEDURE INFORMATION: Exam: XR Right Ankle Exam date and time: 08/20/2024 7:08 PM Age: 79 years old Clinical indication: Right; Prior surgery; Surgery date: 6+ months; RT ankle pain post fall TECHNIQUE: Imaging protocol: Radiologic exam of the right ankle. Views: 3 or more views. COMPARISON: CR XR foot RT min 3V* [id number] 09/24/2023 9:24 AM FINDINGS: Bones/joints: Acute nondisplaced fracture of the distal fibula appearing to reach the level of the ankle mortise. Additional subtle fracture of the anterior aspect of the distal tibia/base of the medial malleolus likely present. [id number] plantar calcaneal spur Soft tissues: Mild circumferential soft tissue swelling around the ankle. XR/XR ankle RT min 3V* [id number] IMPRESSION: 1. Nondisplaced fracture of the distal fibula likely reaching the ankle mortise. No joint widening. 2. Probable additional fracture of the anterior distal tibia/base of the medial malleolus.
--- NOTE | 2024-08-20 18:57 | XRR_ITS ---
PROCEDURE INFORMATION: Exam: XR Right Shoulder Exam date and time: 08/20/2024 7:08 PM Age: 79 years old Clinical indication: Right; RT shoulder pain post fall TECHNIQUE: Imaging protocol: Radiologic exam of the right shoulder. Views: 2 or more views. COMPARISON: CR XR ribs RT 2V* [id number] 05/18/2024 12:59 PM FINDINGS: Bones/joints: Acute transverse fracture of the surgical neck of the humerus with minimal step-off no displacement otherwise. No dislocation. No AC joint widening or offset. Soft tissues: Normal. XR/XR shoulder RT min 2V* [id number] IMPRESSION: Nondisplaced fracture of the surgical neck of the humerus.
[2024-08-20 18:58] VITALS: BP 190/83; PULSE 70; RESP 16; TEMP 36.7; O2SAT 96
--- NOTE | 2024-08-20 19:01 | W.ED.FALL ---
HPI - Fall General: Chief Complaint: Fall Stated Complaint: fall Time Seen by Provider: 08/20/24 18:53 History of Present Illness: Patient fell in her kitchen and hit her right shoulder right knee and right call on the ground. She is having pain in all these areas currently. Patient not hit her head or lose consciousness. Patient has had multiple surgeries on her right ankle. Patient has no other complaints at this time. Related Data Home Medications ?Medication ?Instructions ?Recorded ?Confirmed Elderberry Gummies 2 tab PO DAILY 09/04/21 05/18/24 albuterol sulfate 90 mcg/actuation 2 puff inhalation QID PRN 09/04/21 05/18/24 aerosol inhaler Shortness Of Breath multivitamin 1 tab PO DAILY 09/04/21 05/18/24 neomycin 3.5 mg/g-polymyxin B See Rx Instructions .Route .COMPLEX 09/04/21 05/18/24 10,000 unit/g-dexameth 0.1 % eye oint desloratadine 5 mg tablet mg 11/02/22 05/18/24 ferrous sulfate 325 mg (65 mg mg 11/02/22 05/18/24 iron) tablet lisinopril 20 tab 11/02/22 05/18/24 mg-hydrochlorothiazide 12.5 mg tablet metoprolol tartrate 50 mg tablet mg 11/02/22 05/18/24 Previous Rx's ?Medication ?Instructions ?Recorded methocarbamol 750 mg tablet 750 mg PO Q8H PRN Muscle spasms or 11/02/22 pain #20 tabs azelastine 137 mcg (0.1 %) nasal 2 spray intranasal BID #30 mL 06/24/23 spray benzonatate 100 mg capsule 100 mg PO TID PRN cough #45 caps 07/21/23 mupirocin 2 % topical ointment 1 applic topical DAILY #22 grams 09/11/23 amoxicillin 500 mg-potassium 1 tab PO TID 10 days #30 tabs 01/15/24 clavulanate 125 mg tablet (Augmentin) diphenoxylate-atropine 2.5 1 tab PO BID PRN Diarrhea #60 tabs 03/09/24 mg-0.025 mg tablet glimepiride 2 mg tablet 3 mg (1.5 x 2 mg) PO BID #90 tabs 03/15/24 omeprazole 20 mg capsule,delayed See Rx Instructions .Route 03/15/24 release .COMPLEX #180 caps desloratadine 5 mg tablet See Rx Instructions .Route 03/24/24 .COMPLEX #90 tabs trazodone 50 mg tablet 50 mg PO .qhs #30 tabs 05/18/24 hydrocodone 5 mg-acetaminophen 325 1 tab PO Q8H PRN pain 2 weeks #30 06/03/24 mg tablet tabs ferrous sulfate 325 mg (65 mg See Rx Instructions .Route 06/10/24 iron) tablet .COMPLEX #180 tabs lisinopril 20 See Rx Instructions .Route 07/13/24 mg-hydrochlorothiazide 12.5 mg .COMPLEX #90 tabs tablet metoprolol tartrate 50 mg tablet See Rx Instructions .Route 07/13/24 .COMPLEX #270 tabs hydrocodone 5 mg-acetaminophen 325 1 tab PO Q6H PRN pain #14 tabs 08/20/24 mg tablet Allergies Allergy/AdvReac Type Severity Reaction Status Date / Time acetaminophen (From Allergy Unconscious Verified 04/05/24 07:43 Darvocet-N) codeine Allergy ADR-Drowsy Verified 04/05/24 07:43 erythromycin base Allergy Unconscious Verified 04/05/24 07:43 oxycodone (From Percocet) Allergy ADR-Vomitin Verified 04/05/24 07:43 g propoxyphene (From Allergy Unconscious Verified 04/05/24 07:43 Darvocet-N) Review of Systems General: Reports: 10 or more systems reviewed and unremarkable except in HPI and below PFSH ED PFSH: Medical History Lower GI bleed Diverticulosis Cervical cancer Status post hysterectomy Asthma Type 2 diabetes mellitus History of GI diverticular bleed Surgical History Patellar disorder Right --debridement following a chip fracture History of ankle surgery R x 2 / L x 1 --multiple fractures History of tonsillectomy History of dilatation and curettage / biopsies x 7 History of cholecystectomy History of hysterectomy History of cataract surgery History of colonoscopy Multiple Family History Mother Cancer Father Cancer Social History Smoking and tobacco/nicotine status: unknown if used tobacco/nicotine Alcohol intake: never Physical Exam Const: COMMON NORMALS: no acute distress, average body habitus, patient oriented x3, no limitations, healthy appearing, alert and well nourished HENMT: COMMON NORMALS: normocephalic, atraumatic, hearing grossly normal bilaterally, external ears normal, Normal external nose present, moist oral mucous membranes and oropharynx normal HEAD & SCALP: normocephalic and atraumatic NOSE: Normal external nose present EXTERNAL EAR: Yes external ears normal Neck/C-Spine: COMMON NORMALS: full ROM, no lymphadenopathy, supple, no meningeal signs, no JVD and Thyroid normal THYROID: Thyroid normal Chest: COMMONS NORMALS: normal inspection of the chest and normal palpation of entire chest wall Resp: COMMON NORMALS: normal respiratory effort, No retractions, No use of accessory muscles and clear to auscultation bilaterally AUSCULTATION: clear to auscultation bilaterally Cardio: COMMON NORMALS: no JVD, regular rate, regular rhythm, S1 normal heart sound present, S2 normal heart sound present, No gallops present (Cardio), No clicks present (Cardio), No murmurs present (Cardio) and No rub (Cardio) RATE: regular rate RHYTHM: regular rhythm HEART SOUNDS: S1 normal heart sound present and S2 normal heart sound present GI: COMMON NORMALS: Normal to inspection, nondistended, normoactive bowel sounds present, Soft to palpation, non-tender, No hepatosplenomegaly present and no masses PALPATION: Yes Soft to palpation and Yes No hepatosplenomegaly present Extremity: NARRATIVE EXTREMITY EXAM: Limited range of motion tenderness to palpation over right shoulder, right knee, right ankle, no obvious step-off crepitus or deformity noted. Neuro: COMMON NORMALS: patient oriented x3 SENSORIUM/ORIENTATION: Yes alert MENINGEAL SIGNS: Yes no meningeal signs Course Vital Signs: Vital signs: Vital Signs Temperature 98.1 F 08/20/24 18:58 Pulse Rate 60 08/20/24 19:58 Respiratory Rate 16 08/20/24 18:58 Blood Pressure 180/64 08/20/24 19:58 Pulse Oximetry 95 08/20/24 19:58 Oxygen Delivery Me thod Room Air 08/20/24 18:58 MDM - Fall Medical Decision Making Patient was given 5 mg [place], x-rays was obtained of the ankle, knee, shoulder, positive ankle fracture, questionable impact injury of the knee, positive shoulder fracture. These results was discussed with Dr. Solomon who said to make her nonweightbearing but a sling on her shoulder a splint on her leg provide her with a wheelchair if possible and have her follow-up in the orthopedics office. These results were discussed with the patient. Patient be discharged home. Medical Records I reviewed the patient's medical records. Lab Data I reviewed the patient's lab results. Radiology Impressions Ankle X-Ray 08/20/24 18:57 IMPRESSION: 1. Nondisplaced fracture of the distal fibula likely reaching the ankle mortise. No joint widening. 2. Probable additional fracture of the anterior distal tibia/base of the medial malleolus. Knee X-Ray 08/20/24 18:57 IMPRESSION: Questionable subtle concave impaction injury of the lateral femoral condyle. Otherwise no fracture identified. Shoulder X-Ray 08/20/24 18:57 IMPRESSION: Nondisplaced fracture of the surgical neck of the humerus. All radiology interpretation(s) finalized by discharge Discharge Plan Discharge Patient Disposition: Home Clinical Impression: Fall, Fracture of proximal end of humerus, Ankle fracture, right, Right knee injury Condition: Stable Prescriptions: New hydrocodone-acetaminophen 5-325 mg tablet 1 tab PO Q6H PRN (Reason: pain) Qty: 14 0RF No Action benzonatate 100 mg capsule 100 mg PO TID PRN (Reason: cough) Qty: 45 0RF mupirocin 2 % ointment 1 applic topical DAILY Qty: 22 0RF amoxicillin-pot clavulanate [Augmentin] 500-125 mg tablet 1 tab PO TID 10 Days Qty: 30 0RF glimepiride 2 mg tablet 3 mg PO BID Qty: 90 11RF trazodone 50 mg tablet 50 mg PO .qhs Qty: 30 11RF azelastine 137 mcg (0.1 %) aerosol,spray 2 spray INTRANASAL BID Qty: 30 11RF diphenoxylate-atropine 2.5-0.025 mg tablet 1 tab PO BID PRN (Reason: Diarrhea) Qty: 60 5RF omeprazole 20 mg capsule,delayed release(DR/EC) See Rx Instructions .ROUTE .COMPLEX Qty: 180 3RF Dose Instruction: TAKE 1 TABLET BY MOUTH TWICE A DAY FOR GERD Rx Instructions: TAKE 1 TABLET BY MOUTH TWICE A DAY FOR GERD desloratadine 5 mg tablet See Rx Instructions .ROUTE .COMPLEX Qty: 90 3RF Dose Instruction: TAKE 1 TABLET BY MOUTH EVERY DAY Rx Instructions: TAKE 1 TABLET BY MOUTH EVERY DAY hydrocodone-acetaminophen 5-325 mg tablet 1 tab PO Q8H PRN (Reason: pain) 14 Days Qty: 30 0RF ferrous sulfate 325 mg (65 mg iron) tablet See Rx Instructions .ROUTE .COMPLEX Qty: 180 3RF Dose Instruction: TAKE 1 TABLET BY MOUTH TWICE A DAY Rx Instructions: TAKE 1 TABLET BY MOUTH TWICE A DAY lisinopril-hydrochlorothiazide 20-12.5 mg tablet See Rx Instructions .ROUTE .COMPLEX Qty: 90 3RF Dose Instruction: TAKE 1 TABLET BY MOUTH EVERY MORNING Rx Instructions: TAKE 1 TABLET BY MOUTH EVERY MORNING metoprolol tartrate 50 mg tablet See Rx Instructions .ROUTE .COMPLEX Qty: 270 3RF Dose Instruction: TAKE 1 TABLET BY MOUTH THREE TIMES A DAY Rx Instructions: TAKE 1 TABLET BY MOUTH THREE TIMES A DAY multivitamin Tablet 1 tab PO DAILY albuterol sulfate 90 mcg/actuation HFA aerosol inhaler 2 puff INHALATION QID PRN (Reason: Shortness Of Breath) neomycin-polymyxin B-dexameth 3.5 mg/g-10,000 unit/g-0.1 % ointment See Rx Instructions .ROUTE .COMPLEX Rx Instructions: apply 1/4 amount of ointment to both eyelids tid Elderberry Gummies 2 tab PO DAILY ferrous sulfate 325 mg (65 mg iron) tablet metoprolol tartrate 50 mg tablet desloratadine 5 mg tablet lisinopril-hydrochlorothiazide 20-12.5 mg tablet methocarbamol 750 mg tablet 750 mg PO Q8H PRN (Reason: Muscle spasms or pain) Qty: 20 0RF Discharge Orders: Discharge ED (Routine); Ordered 08/20/24 Ordered By: Tom Ochoa Other Ambulatory Orders: DME: Wheelchair (Order) Location: None Selected Ordered By: Tom Ochoa Referrals: Kuldip Winslow MD [Primary Care Provider] - 1 week Patient Instructions: Ankle Fracture (ED), Arm Fracture in Adults (DC), Opioid Safety, Pain Management Activity Restrictions/Additional Instructions: The x-rays performed in ER showed you have a right shoulder fracture, right ankle fracture and questionable right knee injury. Please stay nonweightbearing and use a wheelchair at all times. You have been referred to case management they will get you an appointment with the orthopedic doctor for further evaluation treatment. You have been prescribed a short course of pain pills to take as directed as needed. Otherwise please follow-up with your family practice physician. 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
[2024-08-20] MEDS: HYDROcodone-acetaminophen 5-325 mg Tablet 1 TAB PO (19:22)
[2024-08-20 19:58] VITALS: BP 180/64; PULSE 60; O2SAT 95
[2024-08-20 20:51] VITALS: BP 179/80; PULSE 66; O2SAT 95
[2024-08-20 21:44] VITALS: BP 170/93
--- NOTE | 2024-08-21 00:48 | PC.NURSE ---
Patient removed vitals, including blood pressure cuff and pulse ox.
[2024-08-21] MEDS: HYDROcodone-acetaminophen 5-325 mg Tablet 1 TAB PO (01:01)
[2024-08-21 01:08] VITALS: PULSE 75; O2SAT 95
--- NOTE | 2024-08-23 07:13 | DCPLANNER ---
messaged ortho for er f/u
== END 2024-08-21 01:14 | disposition home or self-care (01) ==
PROVIDERS: Emergency Provider Emergency Medicine; PCP Family Medicine
DX: S82.491A Other fracture of shaft of right fibula, initial encounter for closed fracture (principal); S42.201A Unspecified fracture of upper end of right humerus, initial encounter for closed fracture; S89.91XA Unspecified injury of right lower leg, initial encounter; E11.9 Type 2 diabetes mellitus without complications; Z85.41 Personal history of malignant neoplasm of cervix uteri; W19.XXXA Unspecified fall, initial encounter
CPT/HCPCS: 29515; 73030; 73562; 73610; 99284

== ENCOUNTER → 2024-08-30 13:18 | Outpatient (BNVA) | payer MEDICARE, SELFPAY | PROVIDERS: PCP Family Medicine; Visit Provider Orthopaedic Surgery | DX: S42.211A Unspecified displaced fracture of surgical neck of right humerus, initial encounter for closed fracture (principal); M25.571 Pain in right ankle and joints of right foot; W19.XXXA Unspecified fall, initial encounter | CPT/HCPCS: 73030; 73610; 99204 ==

== ENCOUNTER 2024-08-30 14:16 | Outpatient (RCR) | payer MEDICARE, SELFPAY | END 2024-09-13 23:59 | disposition home or self-care (01) | LOC: SPT 14:16 | PROVIDERS: PCP Family Medicine; Visit Provider Orthopaedic Surgery | DX: S82.891D Other fracture of right lower leg, subsequent encounter for closed fracture with routine healing (principal); X58.XXXD Exposure to other specified factors, subsequent encounter | CPT/HCPCS: 97760; L4361 ==

== ENCOUNTER → 2024-09-20 10:24 | Outpatient (BNVA) | payer MEDICARE, SELFPAY | PROVIDERS: PCP Family Medicine; Visit Provider Orthopaedic Surgery | DX: S42.211D Unspecified displaced fracture of surgical neck of right humerus, subsequent encounter for fracture with routine healing (principal); M25.511 Pain in right shoulder; X58.XXXD Exposure to other specified factors, subsequent encounter | CPT/HCPCS: 73030; 73610; 99213 ==

== ENCOUNTER → 2024-10-04 12:35 | Outpatient (BNVA) | payer MEDICARE, SELFPAY | PROVIDERS: PCP Family Medicine; Visit Provider Family Medicine | DX: E11.9 Type 2 diabetes mellitus without complications (principal); J06.9 Acute upper respiratory infection, unspecified | CPT/HCPCS: 80053; 80061; 83036; 85025 ==

== ENCOUNTER → 2024-10-18 10:51 | Outpatient (BNVA) | payer MEDICARE, BC, SELFPAY | PROVIDERS: PCP Family Medicine; Visit Provider Orthopaedic Surgery | DX: S82.891D Other fracture of right lower leg, subsequent encounter for closed fracture with routine healing (principal); S42.211D Unspecified displaced fracture of surgical neck of right humerus, subsequent encounter for fracture with routine healing; W19.XXXD Unspecified fall, subsequent encounter | CPT/HCPCS: 99213 ==

== ENCOUNTER 2024-11-22 12:36 | Outpatient (RCR) | payer MEDICARE, BC, SELFPAY | END 2024-12-13 06:56 | disposition home or self-care (01) | LOC: SPT 12:36 | PROVIDERS: Visit Provider Orthopaedic Surgery | DX: M25.511 Pain in right shoulder (principal); M25.571 Pain in right ankle and joints of right foot | CPT/HCPCS: 97110; 97162 ==

== ENCOUNTER → 2024-12-13 10:30 | Outpatient (BNVA) | payer MEDICARE, BC, SELFPAY | PROVIDERS: PCP Family Medicine; Visit Provider Orthopaedic Surgery | DX: S42.211D Unspecified displaced fracture of surgical neck of right humerus, subsequent encounter for fracture with routine healing (principal); S82.891D Other fracture of right lower leg, subsequent encounter for closed fracture with routine healing; X58.XXXD Exposure to other specified factors, subsequent encounter | CPT/HCPCS: 99213 ==

== ENCOUNTER → 2024-12-22 07:36 | Outpatient (BNVA) | payer MEDICARE, BC, SELFPAY | PROVIDERS: PCP Family Medicine; Visit Provider Podiatrist Foot & Ankle Surgery | DX: E11.69 Type 2 diabetes mellitus with other specified complication (principal); L60.0 Ingrowing nail; M79.671 Pain in right foot; L08.9 Local infection of the skin and subcutaneous tissue, unspecified | CPT/HCPCS: 99214 ==

== ENCOUNTER → 2025-01-19 08:43 | Outpatient (BNVA) | payer MEDICARE, BC, SELFPAY | PROVIDERS: PCP Family Medicine; Visit Provider Podiatrist Foot & Ankle Surgery | DX: M79.671 Pain in right foot (principal); L60.0 Ingrowing nail; E11.69 Type 2 diabetes mellitus with other specified complication | CPT/HCPCS: 99213 ==

== ENCOUNTER → 2025-03-30 09:15 | Outpatient (BNVA) | payer MEDICARE, BC, SELFPAY | PROVIDERS: PCP Family Medicine; Visit Provider Podiatrist Foot & Ankle Surgery | DX: L60.0 Ingrowing nail (principal); E11.69 Type 2 diabetes mellitus with other specified complication; L60.3 Nail dystrophy | CPT/HCPCS: 11721; 99213 ==